=== PATIENT | male | born 1940 | race Caucasian/White ===

== ENCOUNTER 2017-04-29 16:50 | Outpatient (CLI) | payer MEDICARE | END 2017-04-29 16:51 | disposition EMS.NT | LOC: EMS 16:50 | PROVIDERS: ATTEND Surgery | DX: E16.2 Hypoglycemia, unspecified (principal) ==

== ENCOUNTER 2017-06-03 10:54 | Outpatient (CLI) | payer MEDICARE ==
--- NOTE | 2017-06-03 15:53 | XRAY Report ---
TWO VIEW RIGHT FEMUR: 06/03/2017 CLINICAL HISTORY: Pain. FINDINGS: Moderate degenerative changes are noted about the right hip. There is axial migration of t he femoral head relative to the acetabuli. Advanced subchondral sclerosis and osteophytic formation n oted. There are no changes to suggest avascular necrosis. The femoral shaft is otherwise unremarkable . Vascular calcifications are incidental. IMPRESSION: 1. DEGENERATIVE CHANGES ABOUT THE RIGHT HIP. 2. VASCULAR CALCIFICATIONS. JOB #: [id number] EXT JOB #:[id number]
== END 2017-06-03 10:55 | disposition home or self-care (01) ==
LOC: DI 10:54
PROVIDERS: ATTEND Internal Medicine
DX: M79.651 Pain in right thigh (principal); M16.11 Unilateral primary osteoarthritis, right hip

== ENCOUNTER 2017-06-18 07:48 | Outpatient (CLI) | payer MEDICARE ==
--- NOTE | 2017-06-18 10:56 | MRI Report ---
EXAM: RIGHT FEMUR/THIGH MRI WITHOUT CONTRAST EXAM DATE: 06/18/2017 09:05 a.m. CLINICAL HISTORY: Right thigh pain for 3 months. COMPARISON: X-ray 06/03/2017. TECHNIQUE: Multiplanar, multisequence T1-weighted and fluid-sensitive sequences of the femur/thigh wi thout contrast. Other: None. FINDINGS: Bones: There is severe osteoarthritis of the right hip visible on the prior x-ray. There is no marrow edema to suggest a fracture or destructive lesion. Joint Spaces: See above. Tendons: There is slightly increased T2 signal in the hamstrings tendon which is a common finding. It may indicate mild degenerative tearing. The remaining tendons appear unremarkable. Musculature: No edema or fatty atrophy. Other: The visualized sciatic and femoral nerves are unremarkable. The subcutaneous tissues are unrem arkable. IMPRESSION: 1. Severe right hip osteoarthritis visible on the recent x-ray. 2. No femoral lesion, or soft tissue injury to the right thigh. [facility] MUSCULOSKELETAL RADIOLOGY SECTION Referring Provider Line: [phone] SITE ID: [id number]
== END 2017-06-18 07:49 | disposition home or self-care (01) ==
LOC: DI 07:48
PROVIDERS: ATTEND Internal Medicine
DX: M79.651 Pain in right thigh (principal); M16.11 Unilateral primary osteoarthritis, right hip

== ENCOUNTER 2017-08-27 09:01 | Outpatient (CLI) | payer MEDICARE ==
[2017-08-27 09:23] LABS: BASOPHILS % (AUTO) 0.4 %; EOSINOPHILS # (AUTO) 0.2 10^3/uL (0.0-0.7); EOSINOPHILS % (AUTO) 1.6 %; HCT - HEMATOCRIT 39.2 % (42.0-52.0); LYMPHOCYTES # (AUTO) 1.6 10^3/uL (1.5-3.5); LYMPHOCYTES % (AUTO) 16.3 %; MEAN CORPUSCULAR HEMOGLOBIN 29.8 pg (27.0-31.0); MEAN CORPUSCULAR HGB CONC 33.1 g/dL (32.0-36.0); MEAN CORPUSCULAR VOLUME 89.9 fL (80.0-94.0); MEAN PLATELET VOLUME 8.6 fL (7.4-11.4); MONOCYTES # (AUTO) 0.6 10^3/uL (0.0-1.0); MONOCYTES % (AUTO) 6.1 %; NEUTROPHILS # (AUTO) 7.5 10^3/uL (1.5-6.6); NEUTROPHILS % (AUTO) 75.6 %; RED BLOOD COUNT 4.36 10^6/uL (4.70-6.10); RED CELL DISTRIBUTION WIDTH 13.7 % (12.0-15.0); UNCORRECTED WHITE BLOOD COUNT 9.9 x10^3/uL; WHITE BLOOD COUNT 9.9 x10^3/uL (4.8-10.8)
[2017-08-27 09:31] LABS: ALBUMIN/GLOBULIN RATIO 1.2 (1.0-2.2); BILIRUBIN,TOTAL 0.7 mg/dL (0.2-1.0); CALCIUM 10.9 mg/dL (8.5-10.3); CREATININE 1.7 mg/dL (0.6-1.2); POTASSIUM 4.4 mmol/L (3.5-5.0)
[2017-08-27 10:01] LABS: HEMOGLOBIN A1C 0.78 g/dL
== END 2017-08-27 09:02 | disposition home or self-care (01) ==
LOC: LAB 09:01
PROVIDERS: ATTEND Internal Medicine
DX: E11.9 Type 2 diabetes mellitus without complications (principal); I10 Essential (primary) hypertension
CPT/HCPCS: 36415; 80053; 82043; 83036; 85025

== ENCOUNTER 2017-11-02 08:27 | Outpatient (CLI) | payer MEDICARE ==
[2017-11-02 09:03] LABS: BASOPHILS # (AUTO) 0.1 10^3/uL (0.0-0.1); BASOPHILS % (AUTO) 0.8 %; EOSINOPHILS # (AUTO) 0.3 10^3/uL (0.0-0.7); EOSINOPHILS % (AUTO) 3.9 %; HGB - HEMOGLOBIN 12.2 g/dL (14.0-18.0); LYMPHOCYTES # (AUTO) 1.9 10^3/uL (1.5-3.5); LYMPHOCYTES % (AUTO) 21.9 %; MEAN CORPUSCULAR HEMOGLOBIN 29.9 pg (27.0-31.0); MEAN CORPUSCULAR HGB CONC 33.5 g/dL (32.0-36.0); MEAN CORPUSCULAR VOLUME 89.2 fL (80.0-94.0); MEAN PLATELET VOLUME 8.3 fL (7.4-11.4); MONOCYTES # (AUTO) 0.7 10^3/uL (0.0-1.0); MONOCYTES % (AUTO) 7.8 %; NEUTROPHILS # (AUTO) 5.8 10^3/uL (1.5-6.6); NEUTROPHILS % (AUTO) 65.6 %; PLT - PLATELET COUNT 207 10^3/uL (130-450); RED BLOOD COUNT 4.09 10^6/uL (4.70-6.10); RED CELL DISTRIBUTION WIDTH 14.2 % (12.0-15.0); WHITE BLOOD COUNT 8.9 x10^3/uL (4.8-10.8)
[2017-11-02 09:28] LABS: ALBUMIN 4.2 g/dL (3.2-5.5); ALBUMIN/GLOBULIN RATIO 1.2 (1.0-2.2); BILIRUBIN,TOTAL 0.6 mg/dL (0.2-1.0); CREATININE 1.9 mg/dL (0.6-1.2); TOTAL PROTEIN 7.6 g/dL (6.7-8.2)
== END 2017-11-02 08:28 | disposition home or self-care (01) ==
LOC: LAB 08:27
PROVIDERS: ATTEND Orthopaedic Surgery
DX: Z01.812 Encounter for preprocedural laboratory examination (principal); M16.11 Unilateral primary osteoarthritis, right hip
CPT/HCPCS: 36415; 80053; 85025; 86850; 86900; 86901

== ENCOUNTER 2017-11-03 09:06 | Inpatient (IN) | payer MEDICARE ==
[~2017-11-03 09:06] MED LIST: ACETAMINOPHEN 1,000 MG/100 ML 100 ML IV ONE; ceFAZolin 2 GM/50 ML 2 GM/50 ML BAG IV ONE
[2017-11-03] MEDS ORDERED: LACTATED RINGERS 1,000 ML IV ONE ×2 (09:50→11:40)
[2017-11-03] MEDS ORDERED: BUPIVACAINE 0.25%-EPI 1:200000 PF 10 ML VIAL SUBQ ONE (11:05)
[2017-11-03] MEDS ORDERED: ROPIVACAINE 0.2% PF 20 ML AMPULE SUBQ ONE (11:50)
[2017-11-03] MEDS ORDERED: MORPHINE PF 10 MG/10 ML AMP SUBQ ONE (11:50)
[2017-11-03] MEDS ORDERED: EPINEPHrine 1 MG/ML AMP IVP ONE (11:50)
[2017-11-03] MEDS ORDERED: KETOROLAC 30 MG/ML VIAL IVP ONE (11:50)
[2017-11-03] MEDS ORDERED: PROPOFOL 200 MG/20 ML VIAL IVP ONE (11:52)
[2017-11-03] MEDS ORDERED: TRANEXAMIC ACID 1,000 MG/10 ML VIAL IV ONE (11:52)
[2017-11-03] MEDS ORDERED: ePHEDrine 50 MG/ML VIAL IVP ONE (11:52)
[2017-11-03] MEDS ORDERED: MIDAZOLAM 2 MG/2 ML VIAL IVP ONE (11:52)
[2017-11-03] MEDS ORDERED: PHENYLEPHRINE 10 MG/ML VIAL IV ONE (11:52)
[2017-11-03] MEDS ORDERED: MORPHINE PF 5 MG/10 ML AMP EP ONE (11:52)
[2017-11-03] MEDS ORDERED: SENNA 8.6 MG TABLET PO PRN (12:40)
--- NOTE | 2017-11-03 12:40 | OPERATIVE REPORT ---
Operative Report - General Admit Date: 11/03/17 Procedure Date: 11/03/17 Planned Procedure: right total hip arthroplasty Pre-Op Diagnosis: djd right hip Procedure Performed: Right total Hip arthroplasty Post Op Diagnosis: same - Procedure Note Primary Surgeon: cheko Anesthesia Technique: Spinal IV Fluids (mL): 1,200 Estimated Blood Loss (mL): 300
[2017-11-03] MEDS ORDERED: BISACODYL 10 MG SUPP PR PRN (12:41)
[2017-11-03] MEDS ORDERED: ACETAMINOPHEN 1,000 MG/100 ML 100 ML IV PRN (12:41)
[2017-11-03] MEDS ORDERED: ACETAMINOPHEN 325 MG TABLET PO PRN (12:41)
[2017-11-03] MEDS ORDERED: SODIUM CHLORIDE FLUSH 0.9% 10 ML SYRINGE IVP PRN (12:41)
[2017-11-03] MEDS ORDERED: ONDANSETRON 4 MG/2 ML VIAL IVP PRN (12:41)
[2017-11-03] MEDS ORDERED: HYDROmorphone 1 MG/ML SYRINGE IVP PRN (12:41)
[2017-11-03] MEDS ORDERED: ONDANSETRON 4 MG/2 ML VIAL ONE (13:24)
--- NOTE | 2017-11-03 13:33 | XRAY Report ---
EXAM: RIGHT HIP AND PELVIS RADIOGRAPHY EXAM DATE: 11/03/2017 01:10 PM. HISTORY: Postoperative from right hip hemiarthroplasty COMPARISONS: 08/27/2017. TECHNIQUE: 1 view of the pelvis and 1 view of the hip. FINDINGS: Bones: New right hip arthroplasty prosthesis. Hardware appears intact. No fracture. Joints: Alignment appears satisfactory. Soft Tissues: There is postoperative soft tissue gas. Chronic spurring at the pubic symphysis appears unchanged. IMPRESSION: Satisfactory postoperative alignment. [facility] Referring Provider Line: [phone] SITE ID: [id number]
[2017-11-03] MEDS: PROCHLORPERAZINE 10 MG/2 ML VIAL IVP PRN ×2 (13:58→19:26)
[2017-11-03] MEDS: SODIUM CHLORIDE FLUSH 0.9% 10 ML SYRINGE IVP SCH ×2 (13:59→19:27)
[2017-11-03] MEDS: SODIUM CHLORIDE 0.45% 1,000 ML IV SCH (14:02)
[2017-11-03] MEDS ORDERED: POLYETHYLENE GLYCOL 3350 17 GM PACKET PO SCH ×2 (17:00→17:30)
[2017-11-03] MEDS ORDERED: DOCUSATE SODIUM 250 MG CAPSULE PO SCH ×3 (17:13→18:00)
--- NOTE | 2017-11-03 17:20 | OPERATIVE REPORT ---
DATE OF SERVICE: 11/03/2017 Physician: Macho Hull MD DATE OF SURGERY: 11/03/2017. PREOPERATIVE DIAGNOSIS: Right hip osteoarthritis. POSTOPERATIVE DIAGNOSIS: Right hip osteoarthritis. PROCEDURE PERFORMED: Right total hip replacement arthroplasty. OPERATING SURGEON: Macho Hull MD ANESTHESIA: Spinal. INDICATIONS FOR SURGERY: The patient is a 77-year-old male with progressive osteoarthritis of his right hip, who has failed nonoperative management, desires hip replacement. RECOMMENDATION: Total hip arthroplasty. FINDINGS AT SURGERY: The patient was found to have diminished range of motion of his hip with minimal shortening. Bone density appeared fair. Wear on the femoral head and acetabulum was actually [id number] in most quadrants of the head. DESCRIPTION OF OPERATIVE PROCEDURE: The patient was taken to the operating room, was given a spinal anesthetic after which a Palomo catheter was placed and the patient was placed supine. The patient's hips were sterilely prepped and draped in standard fashion. The patient was given preoperative IV antibiotics and tranexamic acid. Following this, the hip was prepped and draped in standard fashion and the planned incision site had been marked, was infiltrated with 0.25% Marcaine with epinephrine. Following this, an incision 8 cm in length was made from just lateral to the anterior superior iliac spine towards the femur, taken through skin and subcutaneous tissue, exposing the fascia overlying the tensor fascia muscle. This fascia was incised longitudinally, grasped on its more medial aspect with Allis clamps and the dissection made between that fascia and the underlying tensor muscle. This developed a medial interval for the anterior approach, dissecting down medial to the tensor muscle to the hip capsule, excising fatty tissues and ligating crossing vessels in the plane. Retractors were positioned to expose the femoral capsule, which was then excised anteriorly. This allowed intracapsular position of retractors, after which a ring osteotomy was made essentially removing a napkin ring of bone from the femoral neck and then allowing the corkscrew to remove the femoral head. Some releasing was yet done after this to expose better exposure of the acetabulum and the proximal femur. This required very sequential soft tissue releases around the trochanter and extending up around the acetabulum. Once retractors were positioned, the acetabulum was then reamed to accommodate a size 40 cup with accurate cup position guided by the alignment guides. A 40 cup was installed and was stable, and did not require screw fixation. This was a G7 cup. Following this, the exposure was again gained and the Vitamin E infused poly liner was inserted into the cup. The area was irrigated thoroughly. The proximal femur was exposed with releases and retraction. This brought the femur up into the field of view and allowed a slight correction of the femoral neck osteotomy with a saw followed by intramedullary opening with a rasp, followed by broaches and sequential broaching was taken up to accommodate a size 13 Taperloc stem and on this stem, trial reduction was performed with a 40 mm head and a standard neck length. This restored anatomic position and alignment and lengths of the limbs, and was completely stable through a range of motion. The trial components in the femur were removed. The area was irrigated thoroughly and the Taperloc size 13 stem with standard offset was inserted into the femur, followed by a 40 mm head with standard neck length metallic head and this was inserted into the cup and was stable again and restored limb lengths. The hip was flushed with both irrigation and then with irrigation containing Betadine, and followed by a third irrigation with plain saline. Following this, closure was undertaken closing the tensor fascia with interrupted 0 Vicryl, subcutaneous tissues with 2-0 Vicryl and skin with 3-0 Monocryl. Sterile dressings were applied. The patient was then transported off the OR table carefully onto a hospital bed and taken to recovery room in stable condition. ESTIMATED BLOOD LOSS FOR THE PROCEDURE: Less than 300 mL. COMPLICATIONS: None. COUNTS: Sponge and needle counts correct. TD: 11/03/2017 18:16
[2017-11-03] MEDS: ceFAZolin 2 GM/50 ML 2 GM/50 ML BAG IV SCH (18:26)
[2017-11-03] MEDS ORDERED: INSULIN 70/30 HUMAN 100 UNIT/1 ML 10 ML MDV SUBQ SCH (18:42)
[2017-11-03] MEDS: INSULIN 70/30 HUMAN 100 UNIT/1 ML 10 ML MDV SUBQ SCH (18:51)
[2017-11-03] MEDS: ATORVASTATIN 40 MG TABLET PO SCH (22:06)
[2017-11-03] MEDS: METOPROLOL TARTRATE 25 MG TABLET PO SCH (22:15)
[2017-11-04] MEDS: SODIUM CHLORIDE 0.45% 1,000 ML IV SCH (00:08)
[2017-11-04] MEDS: ceFAZolin 2 GM/50 ML 2 GM/50 ML BAG IV SCH (01:56)
[2017-11-04 05:09] LABS: CALCIUM 8.3 mg/dL (8.5-10.3); CREATININE 1.8 mg/dL (0.6-1.2)
[2017-11-04] MEDS: SODIUM CHLORIDE FLUSH 0.9% 10 ML SYRINGE IVP SCH ×3 (05:41→21:12)
[2017-11-04] MEDS: PANTOPRAZOLE 40 MG TABLET PO SCH (06:02)
[2017-11-04] MEDS: INSULIN 70/30 HUMAN 100 UNIT/1 ML 10 ML MDV SUBQ SCH ×2 (07:33→17:04)
[2017-11-04] MEDS: CHOLECALCIFEROL 1,000 UNIT TABLET PO SCH (08:18)
[2017-11-04] MEDS: METOPROLOL TARTRATE 25 MG TABLET PO SCH ×2 (08:18→21:07)
[2017-11-04] MEDS: LISINOPRIL 5 MG TABLET PO SCH (08:18)
[2017-11-04] MEDS: TAMSULOSIN 0.4 MG CAPSULE PO SCH (08:18)
[2017-11-04] MEDS: FINASTERIDE 5 MG TABLET PO SCH (08:18)
[2017-11-04] MEDS: oxyCOD/ACETAMIN 5 MG/325 MG TABLET PO PRN ×2 (08:18→16:07)
[2017-11-04] MEDS: hydroCHLOROthiazide 25 MG TABLET PO SCH (08:19)
[2017-11-04] MEDS ORDERED: POLYETHYLENE GLYCOL 3350 17 GM PACKET PO SCH (09:00)
[2017-11-04 09:02] LABS: HGB - HEMOGLOBIN 10.9 g/dL (14.0-18.0)
[2017-11-04] MEDS: ASPIRIN EC 325 MG TABLET PO SCH ×2 (09:16→21:07)
--- NOTE | 2017-11-04 09:58 | PROVIDER PROGRESS NOTE ---
Subjective - General Admit Date: 11/03/17 Procedure Date: 11/03/17 Post Op Days: 1 Procedure Performed: right total hip arthroplasty - Review of Systems Wound/Incisions: positive: Healing well Musculoskeletal: positive: Joint swelling Psychiatric: positive: No symptoms Objective - Patient Data Reviewed Vital Signs: Yes Vital Signs: Vital Signs x48h Temp Pulse Resp BP Pulse Ox 11/04/17 07:21 37.1 C 68 20 113/58 L 95 11/04/17 04:06 36.3 C L 81 16 116/69 96 Weight: Weight 11/02/17 11/03/17 11/04/17 23:59 23:59 23:59 Weight (kg) 110.3 kg Intake & Output: Intake and Output Totals x24h 11/02/17 11/03/17 11/04/17 23:59 23:59 23:59 Intake Total 400 2023.333 Output Total 925 500 Balance -525 1523.333 - Lab Results Lab Results: 11/04/17 04:45 Other Lab Results: Lab Results x24hrs 11/04/17 11/04/17 11/03/17 Range/Units 07:19 04:45 20:31 Sodium 133 L (135-145) mmol/L Potassium 5.2 H (3.5-5.0) mmol/L Chloride 101 (101-111) mmol/L Carbon Dioxide 21 (21-32) mmol/L Anion Gap 11.0 (6-13) BUN 55 H (6-20) mg/dL Creatinine 1.8 H (0.6-1.2) mg/dL Estimated GFR (MDRD) 37 L (>89) Glucose 255 H (70-100) mg/dL POC Whole Bld Glucose 204 H 240 H (70 - 100) mg/dL Calcium 8.3 L (8.5-10.3) mg/dL 11/03/17 11/03/17 11/03/17 Range/Units 16:19 13:16 09:43 Sodium (135-145) mmol/L Potassium (3.5-5.0) mmol/L Chloride (101-111) mmol/L Carbon Dioxide (21-32) mmol/L Anion Gap (6-13) BUN (6-20) mg/dL Creatinine (0.6-1.2) mg/dL Estimated GFR (MDRD) (>89) Glucose (70-100) mg/dL POC Whole Bld Glucose 187 H 152 H 164 H (70 - 100) mg/dL Calcium (8.5-10.3) mg/dL - Current Medications Current Medications: Current Medications Generic Name Dose Route Start Last Admin Trade Name Freq PRN Reason Stop Dose Admin Atorvastatin Calcium 40 mg 11/03/17 21:00 11/03/17 22:06 Lipitor PO 40 mg QPM BECCA Administration Cholecalciferol 2,000 unit 11/04/17 09:00 11/04/17 08:18 Vitamin D3 PO 2,000 unit DAILY BECCA Administration Finasteride 5 mg 11/04/17 09:00 11/04/17 08:18 Proscar PO 5 mg DAILY BECCA Administration Hydrochlorothiazide 25 mg 11/04/17 09:00 11/04/17 08:19 Hydrodiuril PO 25 mg DAILY BECCA Administration Insulin Human Isoph/Insulin Regular 42 unit 11/03/17 16:30 11/04/17 07:33 Novolin SUBQ 42 unit 0730,1630 BECCA Administration Lisinopril 2.5 mg 11/04/17 09:00 11/04/17 08:18 Zestril PO 2.5 mg DAILY BECCA Administration Metoprolol Tartrate 25 mg 11/03/17 21:00 11/04/17 08:18 Lopressor PO 25 mg BID BECCA Administration Ondansetron HCl 4 mg 11/03/17 12:41 11/03/17 15:04 Zofran Inj IVP 4 mg Q6HR PRN Administration Nausea / Vomiting Oxycodone/Acetaminophen 1 tab 11/03/17 12:41 11/04/17 08:18 Percocet 5 Mg/325 Mg PO 1 tab Q4HR PRN Administration PAIN Pantoprazole Sodium 40 mg 11/04/17 07:00 11/04/17 06:02 Protonix PO 40 mg QDAC BECCA Administration Polyethylene Glycol 17 gm 11/04/17 09:00 11/04/17 08:21 Miralax PO 11/04/17 10:00 17 gm ONCE BECCA Administration Prochlorperazine Edisylate 10 mg 11/03/17 12:41 11/03/17 19:26 Compazine Inj IVP 10 mg Q6HR PRN Administration Nausea / Vomiting Sodium Chloride 10 ml 11/03/17 14:00 11/04/17 05:41 Normal Saline Flush 0.9% IVP Not Given Q8HR BECCA Sodium Chloride 10 ml 11/03/17 12:41 11/03/17 19:27 Normal Saline Flush 0.9% IVP 10 ml PRN PRN Administration NEEDED PER PROVIDER ORDERS Tamsulosin HCl 0.4 mg 11/04/17 09:00 11/04/17 08:18 Flomax PO 0.4 mg DAILY BECCA Administration
[2017-11-04] MEDS: INSULIN ASPART 300 UNIT/3 ML PEN SUBQ SCH ×2 (12:13→16:57)
[2017-11-04] MEDS: ATORVASTATIN 40 MG TABLET PO SCH (21:07)
[2017-11-05] MEDS: INSULIN ASPART 300 UNIT/3 ML PEN SUBQ SCH ×2 (00:33→07:51)
[2017-11-05] MEDS: oxyCOD/ACETAMIN 5 MG/325 MG TABLET PO PRN ×2 (00:39→09:17)
[2017-11-05] MEDS: PANTOPRAZOLE 40 MG TABLET PO SCH (06:17)
[2017-11-05] MEDS: SODIUM CHLORIDE FLUSH 0.9% 10 ML SYRINGE IVP SCH (06:17)
[2017-11-05 07:24] VITALS: BP 118/52
--- NOTE | 2017-11-05 07:31 | PROVIDER PROGRESS NOTE ---
Subjective - General Admit Date: 11/03/17 Procedure Date: 11/03/17 Post Op Days: 2 Procedure Performed: right total hip arthroplasty - Review of Systems Wound/Incisions: positive: Healing well Musculoskeletal: positive: Joint swelling Psychiatric: positive: No symptoms Objective - Patient Data Reviewed Vital Signs: Yes Vital Signs: Vital Signs x48h Temp Pulse Resp BP BP Pulse Ox 11/05/17 07:21 36.6 C 79 20 118/52 L 96 11/05/17 06:58 36.8 C 80 18 112/66 96 11/05/17 01:53 37.1 C 74 18 98/43 L 94 Weight: Weight 11/03/17 11/04/17 11/05/17 23:59 23:59 23:59 Weight (kg) 110.3 kg Intake & Output: Intake and Output Totals x24h 11/03/17 11/04/17 11/05/17 23:59 23:59 23:59 Intake Total 400 3678.000 100 Output Total 925 500 Balance -525 3178.000 100 - Lab Results Lab Results: 11/04/17 08:55 11/04/17 04:45 Other Lab Results: Lab Results x24hrs 11/05/17 11/04/17 11/04/17 Range/Units 07:18 22:32 21:49 Hgb (14.0-18.0) g/dL Hct (42.0-52.0) % POC Whole Bld Glucose 89 134 H 73 (70 - 100) mg/dL 11/04/17 11/04/17 11/04/17 Range/Units 21:05 16:56 11:03 Hgb (14.0-18.0) g/dL Hct (42.0-52.0) % POC Whole Bld Glucose 59 L* 102 H 163 H (70 - 100) mg/dL 11/04/17 Range/Units 08:55 Hgb 10.9 L (14.0-18.0) g/dL Hct 35.0 L (42.0-52.0) % POC Whole Bld Glucose (70 - 100) mg/dL - Current Medications Current Medications: Current Medications Generic Name Dose Route Start Last Admin Trade Name Freq PRN Reason Stop Dose Admin Aspirin 325 mg 11/04/17 09:00 11/04/17 21:07 Ecotrin PO 325 mg BID BECCA Administration Atorvastatin Calcium 40 mg 11/03/17 21:00 11/04/17 21:07 Lipitor PO 40 mg QPM BECCA Administration Cholecalciferol 2,000 unit 11/04/17 09:00 11/04/17 08:18 Vitamin D3 PO 2,000 unit DAILY BECCA Administration Finasteride 5 mg 11/04/17 09:00 11/04/17 08:18 Proscar PO 5 mg DAILY BECCA Administration Hydrochlorothiazide 25 mg 11/04/17 09:00 11/04/17 08:19 Hydrodiuril PO 25 mg DAILY BECCA Administration Insulin Aspart 1 - 5 unit 11/04/17 12:00 11/05/17 00:33 Novolog SUBQ Not Given 0800,1200,1700,2100 [facility] Protocol Insulin Human Isoph/Insulin Regular 42 unit 11/03/17 16:30 11/04/17 17:04 Novolin SUBQ 42 unit 0730,1630 [facility] Administration Lisinopril 2.5 mg 11/04/17 09:00 11/04/17 08:18 Zestril PO 2.5 mg DAILY [facility] Administration Metoprolol Tartrate 25 mg 11/03/17 21:00 11/04/17 21:07 Lopressor PO 25 mg BID BECCA Administration Ondansetron HCl 4 mg 11/03/17 12:41 11/03/17 15:04 Zofran Inj IVP 4 mg Q6HR PRN Administration Nausea / Vomiting Oxycodone/Acetaminophen 1 tab 11/03/17 12:41 11/05/17 00:39 Percocet 5 Mg/325 Mg PO 1 tab Q4HR PRN Administration PAIN Pantoprazole Sodium 40 mg 11/04/17 07:00 11/05/17 06:17 Protonix PO 40 mg QDAC BECCA Administration Prochlorperazine Edisylate 10 mg 11/03/17 12:41 11/03/17 19:26 Compazine Inj IVP 10 mg Q6HR PRN Administration Nausea / Vomiting Sodium Chloride 10 ml 11/03/17 14:00 11/05/17 06:17 Normal Saline Flush 0.9% IVP 10 ml Q8HR BECCA Administration Sodium Chloride 10 ml 11/03/17 12:41 11/03/17 19:27 Normal Saline Flush 0.9% IVP 10 ml PRN PRN Administration NEEDED PER PROVIDER ORDERS Tamsulosin HCl 0.4 mg 11/04/17 09:00 11/04/17 08:18 Flomax PO 0.4 mg DAILY BECCA Administration - Physical Exam Wound/Incisions: positive: Healing well General Appearance: positive: No acute distress Extremities: positive: Joint swelling Neurologic/Psychiatric: positive: Motor nml, Sensation nml, Mood/affect nml Impression/Plan - Problem List Problem List: POD#2 Pt is doing very well and able to ambulate independently Has trended towards low blood sugar both pre and post surgery. this is to be addressed by patient with alteration in dosing. He is to be discharged and f/u in clinic next week dressing changed.
[2017-11-05] MEDS: CHOLECALCIFEROL 1,000 UNIT TABLET PO SCH (07:51)
[2017-11-05] MEDS: INSULIN 70/30 HUMAN 100 UNIT/1 ML 10 ML MDV SUBQ SCH (07:51)
[2017-11-05] MEDS: ASPIRIN EC 325 MG TABLET PO SCH (07:51)
[2017-11-05] MEDS: TAMSULOSIN 0.4 MG CAPSULE PO SCH (07:52)
[2017-11-05] MEDS: LISINOPRIL 5 MG TABLET PO SCH (07:53)
[2017-11-05] MEDS: hydroCHLOROthiazide 25 MG TABLET PO SCH (07:53)
[2017-11-05] MEDS: METOPROLOL TARTRATE 25 MG TABLET PO SCH (07:53)
[2017-11-05] MEDS: FINASTERIDE 5 MG TABLET PO SCH (07:53)
--- NOTE | 2017-11-05 09:20 | Discharge Plan ---
Discharge Plan Disposition: Home, Self Care Condition: Good Prescriptions: oxyCODONE/ACET 5/325 [Percocet 5 mg/325 mg] 1 tab PO Q4HR PRN #30 tablet PRN Reason: Pain Aspirin EC [Ecotrin] 325 mg PO BID #40 tablet Diet: Diabetic Activity Restrictions: Wt Bearing as Tolerated Shower Restrictions: Yes (keep wound dry) Driving Restrictions: Yes (no driving) Assistance Devices: Walker Weight Bearing: weight bear as tolerated with walker Instruction Topics: Acetaminophen Oxycodone tablets, Hip Replace Total Follow-Up Care: Outpatient Rehab - PT No Smoking: If you smoke, Please STOP! Call for help. Follow-up with: Jonnie Solis MD [Primary Care Provider] - Macho Hull MD [Provider Admit Priv/Credential] -
--- NOTE | 2017-11-17 15:53 | DISCHARGE SUMMARY ---
Physician: Macho Hull MD DATE OF ADMISSION: 11/03/2017 DATE OF DISCHARGE: 11/05/2017 OPERATIVE PROCEDURE: 11/03/2017, a right total hip replacement arthroplasty. REASON FOR ADMISSION: Patient is a 77-year-old male with end-stage hip arthritis who desires hip arthroplasty. The patient has failed nonoperative methods of care. The patient's history and physical exam are noted in the hospital record. HOSPITAL COURSE: The patient was admitted and on 11/03/2017 underwent surgical treatment. The patient tolerated this surgery well and in the postoperative period was returned back to the medical/surgical floor, receiving standard postoperative care for a total hip replacement. This included IV antibiotics, early DVT prophylaxis, and mobilization with therapy, as well as pain control. The patient did surprisingly well and on postop day 2 was anxious to be discharged home with home health therapy or outpatient therapy and followup visits in the clinic. The patient at that point had excellent healing of his incision, he was tolerating his medications well, and he was independent getting to the bathroom and mobilizing in the hospital room and in the hallway. MEDICATIONS AT DISCHARGE 1. Resumption of his usual medications. 2. Additional pain pills and aspirin as deep venous thrombosis prophylaxis. 3. The patient was also encouraged to use laxatives. Followup is to be in the Orthopedic Clinic in 1 week. TD: 11/17/2017 08:27 DIONI
== END 2017-11-05 10:04 | disposition home or self-care (01) | DRG 470 ==
LOC: MS2 09:06
PROVIDERS: ADMIT Orthopaedic Surgery; ATTEND Orthopaedic Surgery
PROC: 0SR902Z Replacement of Right Hip Joint with Metal on Polyethylene Synthetic Substitute, Open Approach (ICD-10-PCS; principal; 2017-11-03 09:45)
DX: M16.11 Unilateral primary osteoarthritis, right hip (principal); N13.8 Other obstructive and reflux uropathy; I10 Essential (primary) hypertension; G47.30 Sleep apnea, unspecified; E66.9 Obesity, unspecified; E11.42 Type 2 diabetes mellitus with diabetic polyneuropathy; E11.319 Type 2 diabetes mellitus with unspecified diabetic retinopathy without macular edema; E11.22 Type 2 diabetes mellitus with diabetic chronic kidney disease; N18.3 Chronic kidney disease, stage 3 (moderate); E87.5 Hyperkalemia; D63.1 Anemia in chronic kidney disease; E78.5 Hyperlipidemia, unspecified; I25.10 Atherosclerotic heart disease of native coronary artery without angina pectoris; N40.1 Benign prostatic hyperplasia with lower urinary tract symptoms; K21.9 Gastro-esophageal reflux disease without esophagitis; Z68.37 Body mass index [BMI] 37.0-37.9, adult; Z79.82 Long term (current) use of aspirin; Z79.4 Long term (current) use of insulin
CPT/HCPCS: 36415; 80048; 85014; 85018

== ENCOUNTER 2017-12-07 08:42 | Outpatient (CLI) | payer MEDICARE ==
[2017-12-07 09:28] LABS: CALCIUM 9.2 mg/dL (8.5-10.3); CREATININE 1.8 mg/dL (0.6-1.2)
[2017-12-07 09:40] LABS: HB2 TOTAL 11.9 g/dL; HEMOGLOBIN A1C 0.65 g/dL; HEMOGLOBIN A1C % 7.1 % (4.6-6.2)
== END 2017-12-07 08:43 | disposition home or self-care (01) ==
LOC: LAB 08:42
PROVIDERS: ATTEND Internal Medicine
DX: E11.40 Type 2 diabetes mellitus with diabetic neuropathy, unspecified (principal)
CPT/HCPCS: 36415; 80048; 83036

== ENCOUNTER 2017-12-16 12:14 | Outpatient (CLI) | payer MEDICARE ==
[2017-12-16 11:15] LABS: BASOPHILS # (AUTO) 0.1 10^3/uL (0.0-0.1); BASOPHILS % (AUTO) 0.7 %; EOSINOPHILS # (AUTO) 0.2 10^3/uL (0.0-0.7); EOSINOPHILS % (AUTO) 2.9 %; HGB - HEMOGLOBIN 10.5 g/dL (14.0-18.0); LYMPHOCYTES # (AUTO) 1.2 10^3/uL (1.5-3.5); LYMPHOCYTES % (AUTO) 14.2 %; MEAN CORPUSCULAR HEMOGLOBIN 28.6 pg (27.0-31.0); MEAN CORPUSCULAR HGB CONC 32.7 g/dL (32.0-36.0); MEAN CORPUSCULAR VOLUME 87.5 fL (80.0-94.0); MEAN PLATELET VOLUME 8.3 fL (7.4-11.4); MONOCYTES # (AUTO) 0.6 10^3/uL (0.0-1.0); MONOCYTES % (AUTO) 6.8 %; NEUTROPHILS # (AUTO) 6.4 10^3/uL (1.5-6.6); NEUTROPHILS % (AUTO) 75.4 %; PLT - PLATELET COUNT 224 10^3/uL (130-450); RED BLOOD COUNT 3.67 10^6/uL (4.70-6.10); RED CELL DISTRIBUTION WIDTH 14.3 % (12.0-15.0); WHITE BLOOD COUNT 8.5 x10^3/uL (4.8-10.8)
--- NOTE | 2017-12-16 12:49 | Ultrasound Report ---
RIGHT LEG VENOUS DUPLEX: 12/16/2017 CLINICAL INDICATION: Swelling. TECHNIQUE: Real-time sonographic vascular imaging was performed by the guide changer through the right leg utilizing both color flow and Doppler spectral analysis. Multiple farm loan representative static images were saved for review. FINDINGS: A right lower extremity venous sonogram is performed revealing the common femoral, superficial femoral, profunda femoris, and popliteal veins to be adequately visualized without intraluminal defects. There is normal venous compression, augmentation, phasicity, and spontaneity of venous flow. In the calf, the visualized more cephalad portions of posterior tibial and peroneal veins are grossly compressible, without filling defects. IMPRESSION: NO EVIDENCE OF DEEP VENOUS THROMBOSIS. TD: 12/16/2017 12:48
== END 2017-12-16 12:15 | disposition home or self-care (01) ==
LOC: DI 12:14
PROVIDERS: ATTEND Orthopaedic Surgery
DX: R22.41 Localized swelling, mass and lump, right lower limb (principal)
CPT/HCPCS: 36415; 85025; 85651; 86140

== ENCOUNTER 2018-03-08 09:04 | Outpatient (CLI) | payer MEDICARE ==
--- NOTE | 2018-03-08 15:02 | Ultrasound Report ---
AORTA SCREENIN03/08/2018 CLINICAL INDICATION: Screening. TECHNIQUE: Real-time sonographic imaging was performed by the steam pipe fitter through the aorta. Multiple community engagement representative static images were saved for review. FINDINGS: The abdominal aorta is normal in caliber throughout, measuring 2.8 cm proximally, 2.2 cm in the mid portion, and 2.2 cm distally. The iliacs are normal in caliber. No free fluid is present. IMPRESSION: NO EVIDENCE OF AN ABDOMINAL AORTIC ANEURYSM. TD: 03/08/2018 10:42 [facility]
== END 2018-03-08 09:05 | disposition home or self-care (01) ==
LOC: DI 09:04
PROVIDERS: ATTEND Internal Medicine
DX: Z13.6 Encounter for screening for cardiovascular disorders (principal)
CPT/HCPCS: 76706

== ENCOUNTER 2018-03-09 11:33 | Outpatient (CLI) | payer MEDICARE ==
[2018-03-09 12:03] LABS: BASOPHILS # (AUTO) 0.1 10^3/uL (0.0-0.1); BASOPHILS % (AUTO) 0.7 %; EOSINOPHILS # (AUTO) 0.3 10^3/uL (0.0-0.7); EOSINOPHILS % (AUTO) 3.4 %; HGB - HEMOGLOBIN 10.9 g/dL (14.0-18.0); LYMPHOCYTES # (AUTO) 1.3 10^3/uL (1.5-3.5); LYMPHOCYTES % (AUTO) 17.4 %; MEAN CORPUSCULAR HEMOGLOBIN 27.1 pg (27.0-31.0); MEAN CORPUSCULAR HGB CONC 31.9 g/dL (32.0-36.0); MEAN CORPUSCULAR VOLUME 85.2 fL (80.0-94.0); MEAN PLATELET VOLUME 8.5 fL (7.4-11.4); MONOCYTES # (AUTO) 0.6 10^3/uL (0.0-1.0); MONOCYTES % (AUTO) 7.7 %; NEUTROPHILS # (AUTO) 5.5 10^3/uL (1.5-6.6); NEUTROPHILS % (AUTO) 70.8 %; PLT - PLATELET COUNT 193 10^3/uL (130-450); RED BLOOD COUNT 4.01 10^6/uL (4.70-6.10); RED CELL DISTRIBUTION WIDTH 15.9 % (12.0-15.0); WHITE BLOOD COUNT 7.7 x10^3/uL (4.8-10.8)
[2018-03-09 13:11] LABS: CALCIUM 8.7 mg/dL (8.5-10.3); CREATININE 2.3 mg/dL (0.6-1.2)
== END 2018-03-09 11:34 | disposition home or self-care (01) ==
LOC: LAB 11:33
PROVIDERS: ATTEND Orthopaedic Surgery
DX: Z01.812 Encounter for preprocedural laboratory examination (principal); E11.621 Type 2 diabetes mellitus with foot ulcer
CPT/HCPCS: 36415; 80048; 85025

== ENCOUNTER 2018-03-11 07:44 | Day surgery (SDC) | payer MEDICARE | END 2018-03-11 07:45 | disposition home or self-care (01) | LOC: SDS 07:44 | PROVIDERS: ATTEND Orthopaedic Surgery | DX: Z53.9 Procedure and treatment not carried out, unspecified reason (principal) ==

== ENCOUNTER 2018-03-11 07:49 | Outpatient (CLI) | payer MEDICARE ==
[2018-03-11 08:16] LABS: CALCIUM 8.9 mg/dL (8.5-10.3); CREATININE 2.2 mg/dL (0.6-1.2)
== END 2018-03-11 07:50 | disposition home or self-care (01) ==
LOC: LAB 07:49
PROVIDERS: ATTEND Nurse Anesthetist, Certified Registered
DX: Z01.812 Encounter for preprocedural laboratory examination (principal); E11.621 Type 2 diabetes mellitus with foot ulcer
CPT/HCPCS: 36415; 80048

== ENCOUNTER 2018-03-25 06:11 | Day surgery (SDC) | payer MEDICARE ==
[2018-03-25] MEDS ORDERED: ceFAZolin 2 GM/50 ML 2 GM/50 ML BAG IV ONE (06:49)
[2018-03-25 06:59] LABS: CALCIUM 8.7 mg/dL (8.5-10.3); CREATININE 1.5 mg/dL (0.6-1.2)
[2018-03-25] MEDS ORDERED: LACTATED RINGERS 1,000 ML IV ONE ×2 (07:09→08:57)
[2018-03-25] MEDS ORDERED: LIDOCAINE-MPF 1% 30 ML VIAL ONE (07:23)
[2018-03-25] MEDS ORDERED: BUPIVACAINE 0.5% PF 30 ML VIAL ONE (07:24)
[2018-03-25] MEDS ORDERED: LIDOCAINE-MPF 2% 5 ML VIAL IM ONE (08:00)
[2018-03-25] MEDS ORDERED: PROPOFOL 200 MG/20 ML VIAL IVP ONE (08:00)
[2018-03-25] MEDS ORDERED: fentaNYL 100 MCG/2 ML VIAL IVP ONE (08:00)
[2018-03-25] MEDS ORDERED: MIDAZOLAM 2 MG/2 ML VIAL IVP ONE (08:00)
[2018-03-25 09:00] VITALS: BP 152/87
--- NOTE | 2018-03-25 17:22 | OPERATIVE REPORT ---
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 PROCEDURE PERFORMED: Right third toe partial amputation at the PIP joint level. OPERATING SURGEON: Macho Hull MD ANESTHESIA: Local MAC, provider Larry Mcmanus. INDICATIONS FOR SURGERY: Pedro is a 77-year-old diabetic male who has had spontaneous breakdown of the distal aspect of his right third toe. This has caused a black eschar to form on the tip of his toe and caused him pain and tenderness. The patient desires that this be appropriately treated and is given consent to distal toe amputation. FINDINGS AT SURGERY: The patient was found to have a necrotic distal pulp of the third toe with the tip of the distal phalanx exposed at the end of the toe. The patient has mild venous stasis dermatitis and discoloration due to venous insufficiency. He does not necessarily have cellulitis. DESCRIPTION OF OPERATIVE PROCEDURE: The patient was taken to the operating room. He was given a MAC anesthetic, after which his toe was carefully blocked after prep and drape. The block of his toe was 6 mL of a combination of 1% lidocaine and 0.25% Marcaine plain. This block was accomplished, after which an Esmarch was used as a tourniquet up to the ankle level and fish mouth incisions were made at the level just distal to the PIP joint to affect an amputation through that joint level. These incisions were taken directly down to bone and through flexor tendons on the volar side and extensors on the dorsal side. The joint level was confirmed and the toe was amputated by direct incision through the capsule and joint. This left exposed condyles of the proximal phalanx and these were rongeured back to a smooth rounded tip with no prominences and with no pressure on skin closure. Flexor and extensor tendons were debrided back as were the digital nerves. Tourniquet was let loose and there was no significant bleeding. Closure was with interrupted 4-0 nylon in the skin, yielding a closure without tension. Sterile dressings were applied and the patient was taken to the recovery room in stable condition. ESTIMATED BLOOD LOSS: Minimal. COMPLICATIONS: None. COUNTS: Sponge and needle counts were correct. TD: 03/25/2018 12:46
== END 2018-03-25 06:12 | disposition home or self-care (01) ==
LOC: SDS 06:11
PROVIDERS: ATTEND Orthopaedic Surgery
PROC: 0Y6T0Z3 Detachment at Right 3rd Toe, Low, Open Approach (ICD-10-PCS; principal; 2018-03-25 07:30)
DX: E11.621 Type 2 diabetes mellitus with foot ulcer (principal); E11.69 Type 2 diabetes mellitus with other specified complication; M86.8X7 Other osteomyelitis, ankle and foot; N28.9 Disorder of kidney and ureter, unspecified; I25.10 Atherosclerotic heart disease of native coronary artery without angina pectoris; I10 Essential (primary) hypertension; K21.9 Gastro-esophageal reflux disease without esophagitis; Z96.641 Presence of right artificial hip joint; E78.5 Hyperlipidemia, unspecified; G47.30 Sleep apnea, unspecified; Z87.891 Personal history of nicotine dependence; E11.40 Type 2 diabetes mellitus with diabetic neuropathy, unspecified; Z79.4 Long term (current) use of insulin
CPT/HCPCS: 28825; 36415; 80048; J0690; J7120; 88305; 88311

== ENCOUNTER 2018-05-04 09:00 | Outpatient (CLI) | payer MEDICARE | END 2018-05-04 09:01 | disposition home or self-care (01) | LOC: LAB.R 09:00 | PROVIDERS: ATTEND Podiatrist | DX: L03.031 Cellulitis of right toe (principal) | CPT/HCPCS: 87070; 87077; 87181; 87205 ==

== ENCOUNTER 2018-05-14 08:03 | Outpatient (CLI) | payer MEDICARE ==
--- NOTE | 2018-05-14 08:52 | XRAY Report ---
Procedure Date: 05/14/2018 Accession Number: [id number] / [id number] Procedure: XR - Foot 3 View RT CPT Code: FULL RESULT: EXAM: Foot 3 View RT DATE: 05/14/2018 8:05 AM CLINICAL HISTORY: GANGRENE R FOOT COMPARISON: None. TECHNIQUE: 3 views. FINDINGS: Calcific soft tissue densities about the medial aspect of the shaft of the third proximal phalanx may represent vascular calcification versus periosteal reaction of this partially amputated ray. Osteomyelitis is not excluded, correlate to physical examination for open wound of the third ray. An osseous erosion is identified in the distal phalanx of the second ray, correlate to physical examination. The medial aspect of the distal head of the first metatarsal also contains a sharply demarcated osseous erosion adnexa soft tissue swelling, correlate to soft tissue this area. There is no fracture or dislocation. No soft tissue gas or radiopaque foreign bodies identified. Extensive vascular calcifications are noted. IMPRESSION: Questionable osseous changes near the first metatarsophalangeal joint, distal tip of the second toe and partially amputated third toe. These 3 areas should be correlated to the physical examination for soft tissue wounds. If present, osteomyelitis is suspected. [facility]
== END 2018-05-14 08:04 | disposition home or self-care (01) ==
LOC: DI 08:03
PROVIDERS: ATTEND Internal Medicine
DX: I96 Gangrene, not elsewhere classified (principal)

== ENCOUNTER 2018-05-19 19:34 | Outpatient (CLI) | payer MEDICARE ==
--- NOTE | 2018-05-20 09:38 | Ultrasound Report ---
Procedure Date: 05/19/2018 Accession Number: [id number] / [id number] Procedure: US - Ankle Brachial Index CPT Code: FULL RESULT: EXAM: ANKLE-BRACHIAL INDEX EXAM DATE: 05/19/2018 08:07 PM. CLINICAL HISTORY: Gangrene right foot. COMPARISON: None. TECHNIQUE: Standard ankle-brachial index performed. FINDINGS: Right and left brachial pressures are 156 and 140 mmHg respectively. Right and left ankle pressures are 166 and 135 mmHg respectively. Right and left ankle-brachial index is 1.06 and 0.86 respectively. IMPRESSION: 1. Right ankle-brachial index is 1.06. 2. Left ankle-brachial index is 0.86. [facility]
--- NOTE | 2018-05-20 14:32 | Ultrasound Report ---
Procedure Date: 05/19/2018 Accession Number: [id number] / [id number] Procedure: US - Duplex Lwr Ext Arterial Bilat CPT Code: FULL RESULT: EXAM: Bilateral Lower Extremity Arterial Doppler Ultrasound EXAM DATE: 05/19/2018 08:23 PM. CLINICAL HISTORY: Gangrene right foot. COMPARISON: None. TECHNIQUE: Real-time sonographic vascular imaging was performed by the supervisor costuming, utilizing color-flow, Doppler flow, and spectral analysis. Multiple client representative static images were saved for review. FINDINGS: Atheromatous calcified and noncalcified plaques are present throughout the arteries of both lower extremities extending from the common femoral artery to the ankle. Monophasic or triphasic waveforms are noted in the right common femoral, superficial femoral, profunda femoral, popliteal and anterior tibial arteries. However, monophasic waveforms are noted in the right posterior tibial, peroneal and dorsalis pedis arteries. No focal area of elevated velocity or spectral broadening is noted in the right leg. No hemodynamically significant focal stenosis is noted in the arteries of the right lower extremity. Biphasic waveforms are seen in the left common femoral and profunda femoral arteries. The remaining vessels including the superficial femoral, popliteal, anterior tibial, posterior tibial, peroneal and dorsalis pedis arteries do show monophasic waveforms. No focal area of elevated velocities or stenosis or aneurysm is noted in the arteries of the left leg. Right Lower Extremity: INTERNET NETWORK SPECIALIST: PSV 162 cm/sec. Triphasic waveform. PSFA: PSV 107 cm/sec. Triphasic waveform. MSFA: PSV 139.4 cm/sec. Biphasic waveform. DSFA: PSV 121 cm/sec. Biphasic waveform. PFA: PSV 71.6 cm/sec. Biphasic waveform. POP: PSV 106 cm/sec. Biphasic waveform. WHITNEY: PSV 89 cm/sec. Biphasic waveform. APPLIANCE FIXER: PSV 91.3 cm/sec. Monophasic waveform. CHRISTOPHE: PSV 59 cm/sec. Monophasic waveform. DPA: PSV 36.6 cm/sec. Monophasic waveform. Left Lower Extremity: INTERNET NETWORK SPECIALIST: PSV 158 cm/sec. Biphasic waveform. PSFA: PSV 66.7 cm/sec. Monophasic waveform. MSFA: PSV 74 cm/sec. Monophasic waveform. DSFA: PSV 110 cm/sec. Monophasic waveform. PFA: PSV 72.6 cm/sec. Biphasic waveform. POP: PSV 123 cm/sec. Monophasic waveform. WHITNEY: PSV 98 cm/sec. Monophasic waveform. APPLIANCE FIXER: PSV 14 cm/sec. Monophasic waveform. CHRISTOPHE: PSV 80 cm/sec. Monophasic waveform. DPA: PSV 21.8 cm/sec. Monophasic waveform. IMPRESSION: 1. Diffuse atheromatous calcified and noncalcified plaques in both lower extremity arterial systems. 2. No hemodynamically significant stenosis as evidenced by elevated velocities or color barker scale imaging abnormality. 3. Diffusely abnormal left leg waveforms beginning at the left common femoral artery and extending to the left ankle. Occult lesion at the distal left common femoral artery not excluded. Findings could be confirmed with CT angiogram with runoff as necessary. 4. Diffusely abnormal monophasic waveforms in the right posterior tibial, peroneal and dorsalis pedis arteries. Triphasic or biphasic waveforms are seen between the common femoral artery and popliteal artery. No focal hemodynamically significant stenosis is noted in the right leg arterial system. Again, CT angiogram with runoff would confirm the presence or absence of an occult lesion. RADIA
== END 2018-05-19 19:35 | disposition home or self-care (01) ==
LOC: DI 19:34
PROVIDERS: ATTEND Internal Medicine
DX: I70.263 Atherosclerosis of native arteries of extremities with gangrene, bilateral legs (principal)
CPT/HCPCS: 93922; 93925

== ENCOUNTER 2018-06-01 08:09 | Outpatient (CLI) | payer MEDICARE ==
[2018-06-01 08:29] LABS: BASOPHILS # (AUTO) 0.1 10^3/uL (0.0-0.1); BASOPHILS % (AUTO) 0.6 %; EOSINOPHILS # (AUTO) 0.2 10^3/uL (0.0-0.7); EOSINOPHILS % (AUTO) 3.1 %; HGB - HEMOGLOBIN 12.3 g/dL (14.0-18.0); LYMPHOCYTES # (AUTO) 1.1 10^3/uL (1.5-3.5); LYMPHOCYTES % (AUTO) 13.9 %; MEAN CORPUSCULAR HEMOGLOBIN 28.6 pg (27.0-31.0); MEAN CORPUSCULAR HGB CONC 32.7 g/dL (32.0-36.0); MEAN CORPUSCULAR VOLUME 87.4 fL (80.0-94.0); MEAN PLATELET VOLUME 8.3 fL (7.4-11.4); MONOCYTES # (AUTO) 0.6 10^3/uL (0.0-1.0); MONOCYTES % (AUTO) 7.2 %; NEUTROPHILS # (AUTO) 5.9 10^3/uL (1.5-6.6); NEUTROPHILS % (AUTO) 75.2 %; PLT - PLATELET COUNT 185 10^3/uL (130-450); RED BLOOD COUNT 4.31 10^6/uL (4.70-6.10); RED CELL DISTRIBUTION WIDTH 15.8 % (12.0-15.0); WHITE BLOOD COUNT 7.8 x10^3/uL (4.8-10.8)
[2018-06-01 08:38] LABS: CALCIUM 9.2 mg/dL (8.5-10.3); CREATININE 1.8 mg/dL (0.6-1.2)
== END 2018-06-01 08:10 | disposition home or self-care (01) ==
LOC: LAB 08:09
PROVIDERS: ATTEND Orthopaedic Surgery
DX: E11.621 Type 2 diabetes mellitus with foot ulcer (principal); I73.9 Peripheral vascular disease, unspecified; N18.3 Chronic kidney disease, stage 3 (moderate)
CPT/HCPCS: 36415; 80048; 85025

== ENCOUNTER 2018-06-08 07:09 | Day surgery (SDC) | payer MEDICARE ==
[2018-06-08] MEDS ORDERED: LIDOCAINE-MPF 2% 5 ML VIAL IM ONE (07:10)
[2018-06-08] MEDS ORDERED: BUPIVACAINE 0.5% PF 30 ML VIAL ONE (07:19)
[2018-06-08] MEDS ORDERED: LIDOCAINE-MPF 1% 30 ML VIAL ONE (07:19)
--- NOTE | 2018-06-08 07:22 | ANESTHESIA ---
Pre-Anesthesia VS, & Labs - Diagnosis Gangrene 2nd, 3rd, 4th toes of right foot - Procedure Amputation of right 2nd, 3rd, 4th toes of right foot Vital Signs: 135/70 57 20 98% , am blood sugar 83 Height 5 ft 9 in Body Mass Index 35.9 - NPO >8 hours - Lab Results Lab results reviewed: Yes Fish Bones: 06/08/18 07:40 Home Medications and Allergies Home Medications: Ambulatory Orders Medication Instructions Recorded Confirmed Atorvastatin Calcium 40 mg PO DAILY 10/14/17 06/08/18 Cholecalciferol (Vitamin D3) 2,000 unit PO DAILY 10/14/17 06/08/18 [Vitamin D3] Finasteride 5 mg PO DAILY 10/14/17 06/08/18 Insulin 70/30 Human [NovoLIN] 44 unit SUBQ 0730,1630 10/14/17 06/08/18 Metoprolol Tartrate 25 mg PO BID 10/14/17 06/08/18 Omeprazole 20 mg PO DAILY 10/14/17 06/08/18 Tamsulosin HCl [Flomax] 0.4 mg PO DAILY 10/14/17 06/08/18 Senna [Senokot] 8.6 mg PO BID PRN 11/03/17 06/08/18 Gabapentin 300 mg PO DAILY 03/09/18 06/08/18 Aspirin 81 mg PO DAILY 05/31/18 06/08/18 Furosemide [Lasix] 20 mg PO DAILY 05/31/18 06/08/18 Allergies/Adverse Reactions: Allergies Allergy/AdvReac Type Severity Reaction Status Date / Time No Known Drug Allergies Allergy Verified 06/08/18 07:52 Anes History & Medical History - Anesthetic History Anesthesia Complications: reports: No previous complications Family history of Anesthesia Complications: Denies Family history of Malignant Hyperthermia: Denies - Medical History Cardiovascular: reports: Hypertension, High cholesterol, Coronary artery disease Pulmonary: reports: Sleep apnea (no CPAP use, sleeps sitting up) Gastrointestinal: reports: GERD, Ulcers, Colon polyps Urinary: reports: Benign prostate hypertrophy, Retention, Renal insuffiency Neuro: reports: None Musculoskeletal: reports: Osteoarthritis Endocrine/Autoimmune: reports: Type 2 diabetes Blood Disorders: reports: None Skin: reports: Other Smoking Status: Former smoker - Surgical History General: Appendectomy, Colonoscopy Cardiothoracic: Cardiac catheterization Orthopedic: Hip replacement, Amputation Results - EKG Results EKG Comparison: Reviewed EKG (01/20/14 EKG showed right BBB and old inferior WI) Exam General: Alert Dental: Partials Upper, Partials Lower Mouth Opening: Greater than 4 Fingerbreadths Mallampati classification: III Respiratory: Lungs clear Cardiovascular: Regular rate, Normal S1, Normal S2 Extremities: Other (open ulcers to 2nd, 3rd and 4th toes) Mental/Cognitive Status: Alert/Oriented X3 Plan Anesthesia Type: Other Block (ankle block) Consent for Procedure(s) Verified and Reviewed: Yes Code Status: Attempt Resuscitation ASA classification: 3-Severe systemic disease Is this case an emergency?: No
[2018-06-08 07:55] LABS: CALCIUM 9.1 mg/dL (8.5-10.3); CREATININE 1.8 mg/dL (0.6-1.2)
[2018-06-08] MEDS ORDERED: LACTATED RINGERS 1,000 ML IV ONE (08:08)
[2018-06-08] MEDS ORDERED: fentaNYL 100 MCG/2 ML VIAL IVP ONE (08:40)
[2018-06-08] MEDS ORDERED: BUPIVACAINE 0.5% PF 30 ML VIAL SUBQ ONE (08:40)
[2018-06-08] MEDS ORDERED: MIDAZOLAM 2 MG/2 ML VIAL IVP ONE (08:40)
[2018-06-08 10:03] VITALS: BP 142/58
--- NOTE | 2018-06-08 21:16 | OPERATIVE REPORT ---
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 POSTOPERATIVE DIAGNOSIS: Ischemic necrosis and diabetic ulceration of right second, third, and fourt h toes. PROCEDURE PERFORMED: Amputation of the patient's right second, third, and fourth toes. OPERATING SURGEON: Macho Hull MD ANESTHESIA: MAC and ankle block anesthetic by Elaina Mann. INDICATIONS FOR SURGERY: Patient is a 78-year-old male who is suffering from both diabetes and ische elena of his lower extremities, more on the right than the left, and has developed intermittent ulcerat ion of the toes of his foot now leading to osteomyelitis and breakdown of tissues with prior history of third partial toe amputation. Because of this situation, the patient has had vascular consultatio n. At this point in time, bypass is not recommended and the amputation is the procedure of choice wi th the patient understanding that this may not be a definitive end-stage amputation. He may end up r equiring a below-knee amputation. FINDINGS AT SURGERY: The patient had necrosis of the tips of second and fourth toes with a black esc shannan and on the third toe that it had a partial amputation, there was breakdown of the wound and mild drainage. There was minimal cellulitis in the tissues and it did not extend proximal to the metatars ophalangeal joint level. DESCRIPTION OF OPERATIVE PROCEDURE: The patient was taken to the operating room. He had been given an ankle block anesthetic. He was given sedation in the operating room. A surgical timeout was held , after which a well-padded tourniquet was placed on the patient's thigh and his leg was sterilely pr epped and draped in standard fashion. The digital amputation was marked out for an en bloc resection of second, third, and fourth toes with an elliptical incision around the base with a planned amputat ion level at the metatarsophalangeal joints. These toes were taken off together dividing straight to the joint level and dividing tendons and neurovascular bundles and removing the specimen. After thi s, the wound was flushed and then some rongeur shortening was performed on each of the exposed metata rsal heads to not only shorten them but round them and smooth them, and remove their plantar prominen ce. Once this was accomplished, the wound fell together without tension and was flushed and irrigate d again and closed with interrupted 2-0 and 3-0 nylon sutures. During the surgery, there had been so me light bleeding from all surfaces, but atypical for the lack of more profound bleeding. The tourni quet was never used. Once the wounds were closed, sterile dressings were applied and the patient was taken to the recovery room. ESTIMATED BLOOD LOSS: Less than 15 mL. COMPLICATIONS: None. SPONGE AND NEEDLE COUNTS: Correct. TD: 06/08/2018 14:00
== END 2018-06-08 07:10 | disposition home or self-care (01) ==
LOC: SDS 07:09
PROVIDERS: ATTEND Orthopaedic Surgery
PROC: 0Y6M0Z7 Detachment at Right Foot, Complete 4th Ray, Open Approach (ICD-10-PCS; 2018-06-08)
PROC: 0Y6M0Z6 Detachment at Right Foot, Complete 3rd Ray, Open Approach (ICD-10-PCS; 2018-06-08)
PROC: 0Y6M0Z5 Detachment at Right Foot, Complete 2nd Ray, Open Approach (ICD-10-PCS; principal; 2018-06-08 08:30)
DX: E11.621 Type 2 diabetes mellitus with foot ulcer (principal); L97.514 Non-pressure chronic ulcer of other part of right foot with necrosis of bone; L97.516 Non-pressure chronic ulcer of other part of right foot with bone involvement without evidence of necrosis; E11.69 Type 2 diabetes mellitus with other specified complication; M86.9 Osteomyelitis, unspecified; E11.52 Type 2 diabetes mellitus with diabetic peripheral angiopathy with gangrene; I96 Gangrene, not elsewhere classified; I12.9 Hypertensive chronic kidney disease with stage 1 through stage 4 chronic kidney disease, or unspecified chronic kidney disease; E11.22 Type 2 diabetes mellitus with diabetic chronic kidney disease; N18.3 Chronic kidney disease, stage 3 (moderate); D63.1 Anemia in chronic kidney disease; I25.10 Atherosclerotic heart disease of native coronary artery without angina pectoris; E78.5 Hyperlipidemia, unspecified; G47.30 Sleep apnea, unspecified; E66.01 Morbid (severe) obesity due to excess calories; Z68.37 Body mass index [BMI] 37.0-37.9, adult; E11.319 Type 2 diabetes mellitus with unspecified diabetic retinopathy without macular edema; K21.9 Gastro-esophageal reflux disease without esophagitis; N40.1 Benign prostatic hyperplasia with lower urinary tract symptoms; R33.8 Other retention of urine; M19.90 Unspecified osteoarthritis, unspecified site; Z96.641 Presence of right artificial hip joint; Z79.4 Long term (current) use of insulin; Z79.82 Long term (current) use of aspirin; Z87.891 Personal history of nicotine dependence
CPT/HCPCS: 28810; 36415; 80048; J7120

== ENCOUNTER 2018-07-01 09:33 | Outpatient (CLI) | payer MEDICARE ==
--- NOTE | 2018-07-01 10:38 | XRAY Report ---
Reason: PROGRESSIVE PAIN AND EDEMA RIGHT ANKLE Procedure Date: 07/01/2018 Accession Number: [id number] / [id number] Procedure: XR - Ankle 3 View LT CPT Code: FULL RESULT: EXAM: LEFT ANKLE RADIOGRAPHY EXAM DATE: 07/01/2018 09:46 AM. CLINICAL HISTORY: PROGRESSIVE PAIN AND EDEMA RIGHT ANKLE. COMPARISON: None. TECHNIQUE: 3 views. FINDINGS: Bones: No fractures or bone lesions. There is a moderate calcaneal spur at the insertion of the plantar fascia. There is pes planus. There is degeneration of the talocalcaneal articulations. Joints: No effusion. No subluxations. The ankle mortise is normally aligned. Soft Tissues: There is diffuse soft tissue swelling. Vascular calcifications are noted. IMPRESSION: Charcot joint. Moderate calcaneal spur. RADIA
== END 2018-07-01 09:34 | disposition home or self-care (01) ==
LOC: DI 09:33
PROVIDERS: ATTEND Podiatrist
DX: A52.16 Charcot's arthropathy (tabetic) (principal); M77.31 Calcaneal spur, right foot

== ENCOUNTER 2018-08-17 10:47 | Day surgery (SDC) | payer MEDICARE ==
[~2018-08-17 10:47] MED LIST changes: -ACETAMINOPHEN 1,000 MG/100 ML 100 ML IV ONE
[2018-08-17] MEDS ORDERED: BUPIVACAINE 0.5% PF 30 ML VIAL ONE (11:08)
[2018-08-17] MEDS ORDERED: LACTATED RINGERS 1,000 ML IV ONE (11:29)
--- NOTE | 2018-08-17 11:31 | ANESTHESIA ---
Pre-Anesthesia VS, & Labs - Diagnosis Right 5th Toe infection - Procedure Right 5th toe amputation Vital Signs: Temp Pulse Resp BP Pulse Ox 36.3 C L 64 16 133/109 H 98 08/17/18 11:03 08/17/18 11:03 08/17/18 11:03 08/17/18 11:03 08/17/18 11:03 Height 5 ft 9 in Weight (kg) 108.2 kg Body Mass Index 35.9 - NPO >8 hours Last Fluid Intake: 0930 H2O and black coffee - Lab Results Current Lab Results: Laboratory Tests 08/17/18 11:15: POC Whole Bld Glucose 146 H Home Medications and Allergies Atorvastatin Calcium 40 mg PO DAILY 10/14/17 Cholecalciferol (Vitamin D3) [Vitamin D3] 2,000 unit PO DAILY 10/14/17 Finasteride 5 mg PO DAILY 10/14/17 Insulin 70/30 Human [NovoLIN] 44 unit SUBQ 0730,1630 10/14/17 Metoprolol Tartrate 25 mg PO BID 10/14/17 Omeprazole 20 mg PO DAILY 10/14/17 Tamsulosin HCl [Flomax] 0.4 mg PO DAILY 10/14/17 Senna [Senokot] 8.6 mg PO BID PRN 11/03/17 Gabapentin 300 mg PO DAILY 03/09/18 Aspirin 81 mg PO DAILY 05/31/18 Furosemide [Lasix] 20 mg PO DAILY 05/31/18 Allergies/Adverse Reactions: Allergies Allergy/AdvReac Type Severity Reaction Status Date / Time No Known Drug Allergies Allergy Verified 06/08/18 07:52 Anes History & Medical History - Anesthetic History Anesthesia Complications: reports: No previous complications - Medical History Cardiovascular: reports: Hypertension, High cholesterol, Coronary artery disease (questionable, stent and/or angioplasty) Pulmonary: reports: Sleep apnea (Does not use CPAP) Gastrointestinal: reports: GERD, Ulcers, Colon polyps Urinary: reports: Benign prostate hypertrophy, Retention, Renal insuffiency Neuro: reports: None Musculoskeletal: reports: Osteoarthritis Endocrine/Autoimmune: reports: Type 2 diabetes Blood Disorders: reports: None Skin: reports: Other Smoking Status: Former smoker (Quit in 2001) Psychosocial: reports: No issues indicated - Surgical History General: Appendectomy, Colonoscopy Cardiothoracic: Cardiac catheterization Orthopedic: Hip replacement, Amputation Exam General: Alert, Oriented x3, Cooperative, No acute distress Dental: Poor dentition (Multiple missing) Mouth Openin Fingerbreadth Neck Mobility: Normal Mallampati classification: III Thyromental Distance: 4-6 cm Respiratory: Lungs clear, Normal breath sounds, No respiratory distress, No accessory muscle use Cardiovascular: Regular rate, Normal S1, Normal S2, No murmurs Mental/Cognitive Status: Alert/Oriented X3, Normal for patient Cognitive Status: Within normal limits Plan Anesthesia Type: General Consent for Procedure(s) Verified and Reviewed: Yes Code Status: Attempt Resuscitation ASA classification: 3-Severe systemic disease Is this case an emergency?: No
[2018-08-17 11:40] LABS: CALCIUM 9.1 mg/dL (8.5-10.3); CREATININE 1.5 mg/dL (0.6-1.2)
[2018-08-17] MEDS ORDERED: ceFAZolin 2 GM/50 ML 2 GM/50 ML BAG IV ONE (11:46)
[2018-08-17] MEDS ORDERED: BUPIVACAINE 0.5% PF 30 ML VIAL INFIL ONE (12:13)
[2018-08-17] MEDS ORDERED: MIDAZOLAM 2 MG/2 ML VIAL IVP ONE (12:25)
[2018-08-17] MEDS ORDERED: PROPOFOL 200 MG/20 ML VIAL IVP ONE (12:25)
[2018-08-17 12:35] VITALS: BP 161/68
--- NOTE | 2018-08-17 18:22 | OPERATIVE REPORT ---
DATE OF SERVICE: 08/17/2018 Physician: Macho Hull MD PREOPERATIVE DIAGNOSIS: Right foot fifth toe diabetic ulceration. POSTOPERATIVE DIAGNOSIS: Right foot fifth toe diabetic ulceration. PROCEDURE PERFORMED: Right fifth toe amputation at the metatarsophalangeal joint level. SURGEON: Macho Hull MD. ANESTHESIA: Local. INDICATIONS FOR SURGERY: Patient is a 78-year-old male who has had recent ulceration and infection i n his foot that led to amputation of toes 2, 3, and 4. The patient managed to heal this but had a fi fth toe that was placed under pressure in his shoe, and with weightbearing, had caused ulceration and necrosis at the tip of the toe, and for this reason, it was recommended that he proceed back to [facility] to have amputation of the fifth toe at the level of the fifth metatarsophalangeal joint. DESCRIPTION OF OPERATIVE PROCEDURE: The patient was taken to the operating room. He was given a sed ation IV by anesthesia. He was in the supine position on the OR table. A tourniquet was not used. His foot and ankle were sterilely prepped and draped in the standard fashion. A surgical timeout was held, after which a marking pen was used to define an amputation level just distal to the MP joint a nd the soft tissue so that flaps could be created, and the incisions were then directly taken down to bone after infiltrating the tissues with Marcaine plain. The incision was taken down, and the joint identified and the toe removed. The soft tissues were then gently retracted to expose the metatarsa l head, and bony prominence was removed from the metatarsal head so that the patient would not procee d to have pressure points and break down. The area was flushed of bony and cartilage debris. The fl aps were contoured slightly so the closure would have no tension, and after this an interrupted closu re was done with a 3-0 nylon. There was bleeding, and the edges appeared healthy and there was no in fection in the tissues. Soft dressings were applied. The patient was taken to recovery room in stab le condition. ESTIMATED BLOOD LOSS: Minimal. COMPLICATIONS: None. COUNTS: Sponge and needle counts correct. TD: 08/17/2018 13:37
== END 2018-08-17 10:48 | disposition home or self-care (01) ==
LOC: SDS 10:47
PROVIDERS: ATTEND Orthopaedic Surgery
PROC: 0Y6X0Z0 Detachment at Right 5th Toe, Complete, Open Approach (ICD-10-PCS; principal; 2018-08-17 12:45)
DX: L89.899 Pressure ulcer of other site, unspecified stage (principal); L03.031 Cellulitis of right toe; E11.42 Type 2 diabetes mellitus with diabetic polyneuropathy; E11.319 Type 2 diabetes mellitus with unspecified diabetic retinopathy without macular edema; E11.51 Type 2 diabetes mellitus with diabetic peripheral angiopathy without gangrene; E11.22 Type 2 diabetes mellitus with diabetic chronic kidney disease; N18.3 Chronic kidney disease, stage 3 (moderate); D63.1 Anemia in chronic kidney disease; I12.9 Hypertensive chronic kidney disease with stage 1 through stage 4 chronic kidney disease, or unspecified chronic kidney disease; G47.30 Sleep apnea, unspecified; I25.10 Atherosclerotic heart disease of native coronary artery without angina pectoris; E66.01 Morbid (severe) obesity due to excess calories; Z89.421 Acquired absence of other right toe(s); Z87.891 Personal history of nicotine dependence; Z79.4 Long term (current) use of insulin; Z79.899 Other long term (current) drug therapy; Z68.35 Body mass index [BMI] 35.0-35.9, adult; Z79.82 Long term (current) use of aspirin
CPT/HCPCS: 28820; 80048; J0690; J7120

== ENCOUNTER 2018-11-09 09:26 | Outpatient (CLI) | payer MEDICARE ==
--- NOTE | 2018-11-10 10:14 | XRAY Report ---
Reason: CHARCOT FOOT DISEASE Procedure Date: 11/09/2018 Accession Number: [id number] / [id number] Procedure: XR - Foot 3 View LT CPT Code: FULL RESULT: EXAM: LEFT FOOT RADIOGRAPHY EXAM DATE: 11/09/2018 08:55 AM. CLINICAL HISTORY: Charcot foot disease. COMPARISON: FOOT 3 VIEW RT 05/14/2018 8:05 AM. TECHNIQUE: 3 views. FINDINGS: Bones: Inferior calcaneal spurring. Joints: Pes planus with degenerative collapse of the hindfoot articulations, Charcot foot overall progressed compared to April. Advanced degenerative changes of the first metatarsophalangeal joint. Soft Tissues: Vascular calcifications. IMPRESSION: Presumably neuropathic hindfoot changes with collapse, progression from prior. RADIA
== END 2018-11-09 09:27 | disposition home or self-care (01) ==
LOC: DI 09:26
PROVIDERS: ATTEND Podiatrist
DX: A52.16 Charcot's arthropathy (tabetic) (principal)

== ENCOUNTER 2019-02-03 10:58 | Outpatient (CLI) | payer MEDICARE ==
[2019-02-03 11:46] LABS: ALBUMIN 3.9 g/dL (3.2-5.5); ALKALINE PHOSPHATASE 103 IU/L (42-121); ALT ALANINE AMINOTRANSFERASE 25 IU/L (10-60); AST ASPARTATE AMINOTRANSFERASE 30 IU/L (10-42); BILIRUBIN,TOTAL 0.6 mg/dL (0.2-1.0); BUN - BLOOD UREA NITROGEN 38 mg/dL (6-20); CARBON DIOXIDE - CO2 24 mmol/L (21-32); CHLORIDE 102 mmol/L (101-111); CHOL/HDL RATIO 4.2 (<5.0); CHOLESTEROL 137 mg/dL; CREATININE 1.6 mg/dL (0.6-1.2); GFR - MDRD 42 (>89); GLUCOSE 177 mg/dL (70-100); HDL CHOLESTEROL 33 mg/dL; LDL CHOLESTEROL,CALCULATED 50 mg/dL; LDL/HDL RATIO 1.5 (<3.6); SODIUM 136 mmol/L (135-145); TOTAL PROTEIN 7.7 g/dL (6.7-8.2); VLDL CHOLESTEROL 54 mg/dL
[2019-02-03 12:01] LABS: CREATININE,URINE 138.7 mg/dL; MICROALBUM/CREATININE RATIO,UR 444.1 ug/mg (<30.0); MICROALBUMIN,URINE 61.6 mg/dL (0-300.0)
[2019-02-03 13:26] LABS: BASOPHILS # (AUTO) 0.1 10^3/uL (0.0-0.1); BASOPHILS % (AUTO) 0.6 %; EOSINOPHILS # (AUTO) 0.3 10^3/uL (0.0-0.7); EOSINOPHILS % (AUTO) 3.3 %; HGB - HEMOGLOBIN 13.2 g/dL (14.0-18.0); LYMPHOCYTES # (AUTO) 1.8 10^3/uL (1.5-3.5); MEAN CORPUSCULAR HGB CONC 32.6 g/dL (32.0-36.0); MEAN PLATELET VOLUME 8.4 fL (7.4-11.4); MONOCYTES # (AUTO) 0.7 10^3/uL (0.0-1.0); MONOCYTES % (AUTO) 7.3 %; NEUTROPHILS # (AUTO) 6.3 10^3/uL (1.5-6.6); NEUTROPHILS % (AUTO) 68.8 %; PLT - PLATELET COUNT 233 10^3/uL (130-450); RED BLOOD COUNT 4.53 10^6/uL (4.70-6.10); RED CELL DISTRIBUTION WIDTH 14.9 % (12.0-15.0); WHITE BLOOD COUNT 9.2 x10^3/uL (4.8-10.8)
[2019-02-03 14:29] LABS: HB2 TOTAL 14.2 g/dL; HEMOGLOBIN A1C 0.79 g/dL; HEMOGLOBIN A1C % 7.2 % (4.6-6.2)
== END 2019-02-03 10:59 | disposition home or self-care (01) ==
LOC: LAB 10:58
PROVIDERS: ATTEND Internal Medicine
DX: E78.5 Hyperlipidemia, unspecified (principal); E11.51 Type 2 diabetes mellitus with diabetic peripheral angiopathy without gangrene
CPT/HCPCS: 36415; 80053; 80061; 82043; 82570; 83036; 83721; 85025

== ENCOUNTER 2019-02-09 11:14 | Outpatient (CLI) | payer MEDICARE ==
--- NOTE | 2019-02-09 13:09 | XRAY Report ---
Reason: L FOOT CHARCOT JOINT DISEASE Procedure Date: 02/09/2019 Accession Number: [id number] / [id number] Procedure: XR - Foot 3 View LT CPT Code: FULL RESULT: EXAM: LEFT FOOT RADIOGRAPHY EXAM DATE: 02/09/2019 11:38 AM. CLINICAL HISTORY: Left foot Charcot joint disease. COMPARISON: FOOT 3 VIEW LT 11/09/2018 8:44 AM. TECHNIQUE: 3 views. FINDINGS: Bones: No fracture is detected. Joints: Midfoot derangement with increasing sclerosis consistent with provided history. There is also joint space destruction at the first metatarsophalangeal joint, similar in appearance to prior. Pes planus. Soft Tissues: Vascular calcification. IMPRESSION: Midfoot derangement as well as pes planus. Peripheral arterial disease. RADIA
== END 2019-02-09 11:15 | disposition home or self-care (01) ==
LOC: DI 11:14
PROVIDERS: ATTEND Podiatrist
DX: A52.16 Charcot's arthropathy (tabetic) (principal); I73.9 Peripheral vascular disease, unspecified; M21.42 Flat foot [pes planus] (acquired), left foot

== ENCOUNTER 2019-04-27 08:21 | Outpatient (CLI) | payer MEDICARE ==
--- NOTE | 2019-04-27 10:22 | XRAY Report ---
Reason: Matthew ANAYA CHARCOT JOINT Procedure Date: 04/27/2019 Accession Number: [id number] / [id number] Procedure: XR - Foot 3 View LT CPT Code: FULL RESULT: EXAM: LEFT FOOT RADIOGRAPHY EXAM DATE: 04/27/2019 08:34 AM. CLINICAL HISTORY: Left foot Charcot joint. COMPARISON: FOOT 3 VIEW LT 02/09/2019 11:38 AM. TECHNIQUE: 3 views. FINDINGS: Bones: The base of the fifth metatarsal is noted to be deformed, site of question of prior fracture. Moderate inferior calcaneal spurring is noted. Os trigonum is noted. No acute fracture is seen. Joints: Degenerative changes and loss of joint space and normal relationships in the midfoot have progressed. There is increasing loss of joint space with sclerosis and periarticular osteopenia as well as osteophyte formation of the first metatarsophalangeal articulation, progression of similar previous findings. Pes planus deformity. Soft Tissues: Vascular calcifications are noted. IMPRESSION: Pes planus with midfoot degenerative changes, compatible with provided history. Other degenerative changes and incidental os trigonum as described above. RADIA
== END 2019-04-27 08:22 | disposition home or self-care (01) ==
LOC: DI 08:21
PROVIDERS: ATTEND Podiatrist
DX: A52.16 Charcot's arthropathy (tabetic) (principal); M21.42 Flat foot [pes planus] (acquired), left foot; M19.072 Primary osteoarthritis, left ankle and foot

== ENCOUNTER 2019-11-07 08:00 | Outpatient (CLI) | payer MEDICARE | END 2019-11-07 23:59 | disposition home or self-care (01) | LOC: LAB.R 08:00 | PROVIDERS: ATTEND Podiatrist | DX: E11.622 Type 2 diabetes mellitus with other skin ulcer (principal) | CPT/HCPCS: 87070; 87077; 87181; 87205 ==

== ENCOUNTER 2019-11-21 08:50 | Outpatient (CLI) | payer MEDICARE ==
[2019-11-21 09:08] LABS: BASOPHILS % (AUTO) 0.4 %; EOSINOPHILS # (AUTO) 0.2 10^3/uL (0.0-0.7); HGB - HEMOGLOBIN 13.1 g/dL (14.0-18.0); LYMPHOCYTES # (AUTO) 1.4 10^3/uL (1.5-3.5); LYMPHOCYTES % (AUTO) 15.8 %; MEAN CORPUSCULAR HEMOGLOBIN 29.8 pg (27.0-31.0); MEAN CORPUSCULAR HGB CONC 31.4 g/dL (32.0-36.0); MEAN CORPUSCULAR VOLUME 94.8 fL (80.0-94.0); MEAN PLATELET VOLUME 10.6 fL (7.4-11.4); MONOCYTES # (AUTO) 0.6 10^3/uL (0.0-1.0); MONOCYTES % (AUTO) 6.4 %; NEUTROPHILS # (AUTO) 6.8 10^3/uL (1.5-6.6); PLT - PLATELET COUNT 182 10^3/uL (130-450); RED CELL DISTRIBUTION WIDTH 13.6 % (12.0-15.0); WHITE BLOOD COUNT 9.1 x10^3/uL (4.8-10.8)
[2019-11-21 09:23] LABS: ALBUMIN 3.6 g/dL (3.2-5.5); ALBUMIN/GLOBULIN RATIO 0.9 (1.0-2.2); BILIRUBIN,TOTAL 0.8 mg/dL (0.2-1.0); CALCIUM 8.8 mg/dL (8.5-10.3); CREATININE 1.6 mg/dL (0.6-1.2); TOTAL PROTEIN 7.8 g/dL (6.7-8.2)
[2019-11-21 09:24] LABS: HB2 TOTAL 13.2 g/dL; HEMOGLOBIN A1C 0.83 g/dL; HEMOGLOBIN A1C % 7.9 % (4.6-6.2)
[2019-11-21 09:39] LABS: CREATININE,URINE 158.1 mg/dL; MICROALBUM/CREATININE RATIO,UR 574.3 ug/mg (<30.0); MICROALBUMIN,URINE 90.8 mg/dL (0-300.0)
== END 2019-11-21 08:51 | disposition home or self-care (01) ==
LOC: LAB 08:50
PROVIDERS: ATTEND Internal Medicine
DX: E11.42 Type 2 diabetes mellitus with diabetic polyneuropathy (principal)
CPT/HCPCS: 36415; 80053; 82043; 82570; 83036; 85025

== ENCOUNTER 2020-07-14 18:55 | Outpatient (CLI) | payer MEDICARE | END 2020-07-14 18:56 | disposition EMS.NT | LOC: EMS 18:55 | PROVIDERS: ATTEND Surgery | DX: R41.82 Altered mental status, unspecified (principal) ==

== ENCOUNTER 2021-02-25 09:55 | Outpatient (CLI) | payer MEDICARE | END 2021-02-25 09:56 | disposition home or self-care (01) | LOC: LAB 09:55 | PROVIDERS: ATTEND Internal Medicine | DX: Z53.9 Procedure and treatment not carried out, unspecified reason (principal) ==

== ENCOUNTER 2021-02-26 08:18 | Outpatient (CLI) | payer MEDICARE ==
[2021-02-26 08:36] LABS: BASOPHILS % (AUTO) 0.5 %; EOSINOPHILS # (AUTO) 0.2 10^3/uL (0.0-0.7); EOSINOPHILS % (AUTO) 2.5 %; HCT - HEMATOCRIT 44.6 % (42.0-52.0); HGB - HEMOGLOBIN 14.6 g/dL (14.0-18.0); LYMPHOCYTES # (AUTO) 1.5 10^3/uL (1.5-3.5); LYMPHOCYTES % (AUTO) 18.8 %; MEAN CORPUSCULAR HEMOGLOBIN 30.5 pg (27.0-31.0); MEAN CORPUSCULAR HGB CONC 32.7 g/dL (32.0-36.0); MEAN CORPUSCULAR VOLUME 93.3 fL (80.0-94.0); MEAN PLATELET VOLUME 10.7 fL (7.4-11.4); MONOCYTES # (AUTO) 0.6 10^3/uL (0.0-1.0); MONOCYTES % (AUTO) 8.2 %; NEUTROPHILS # (AUTO) 5.4 10^3/uL (1.5-6.6); NEUTROPHILS % (AUTO) 69.7 %; PLT - PLATELET COUNT 175 10^3/uL (130-450); RED BLOOD COUNT 4.78 10^6/uL (4.70-6.10); RED CELL DISTRIBUTION WIDTH 13.6 % (12.0-15.0); WHITE BLOOD COUNT 7.7 x10^3/uL (4.8-10.8)
[2021-02-26 08:53] LABS: ALBUMIN 4.3 g/dL (3.2-5.5); ALBUMIN/GLOBULIN RATIO 1.2 (1.0-2.2); ALKALINE PHOSPHATASE 110 IU/L (42-121); ALT ALANINE AMINOTRANSFERASE 24 IU/L (10-60); AST ASPARTATE AMINOTRANSFERASE 23 IU/L (10-42); BILIRUBIN,TOTAL 0.6 mg/dL (0.2-1.0); BUN - BLOOD UREA NITROGEN 50 mg/dL (6-20); CALCIUM 9.5 mg/dL (8.5-10.3); CARBON DIOXIDE - CO2 28 mmol/L (21-32); CHLORIDE 100 mmol/L (101-111); CHOL/HDL RATIO 4.1 (<5.0); CHOLESTEROL 146 mg/dL; GFR - MDRD 32 (>89); GLUCOSE 225 mg/dL (70-100); HDL CHOLESTEROL 36 mg/dL; LDL CHOLESTEROL,CALCULATED 93 mg/dL; LDL/HDL RATIO 2.6 (<3.6); SODIUM 139 mmol/L (135-145); TRIGLYCERIDES 85 mg/dL; VLDL CHOLESTEROL 17 mg/dL
== END 2021-02-26 08:19 | disposition home or self-care (01) ==
LOC: LAB 08:18
PROVIDERS: ATTEND Internal Medicine
DX: E11.9 Type 2 diabetes mellitus without complications (principal); E78.5 Hyperlipidemia, unspecified
CPT/HCPCS: 36415; 80053; 80061; 82043; 82570; 83721; 85025

== ENCOUNTER 2021-03-30 08:03 | Outpatient (CLI) | payer MEDICARE ==
--- NOTE | 2021-03-30 19:06 | Ultrasound Report ---
PROCEDURE: Bladder INDICATIONS: BLADDER OUTFLOW OBSTRUCTION TECHNIQUE: Resent ultrasound scanning was performed of the bladder, with image documentation. Color D oppler ultrasound was also utilized. COMPARISON: 02/19/2015, 01/14/2007, 12/15/2008 FINDINGS: The prevoid bladder volume is 334 cc. The post void bladder volume is 332 cc. Both ureteral jets can be seen. The prostate is not enlarged, measuring 3.1 x 2.3 x 4.3 cm. IMPRESSION: Prominent post void residual, 332 cc. Reviewed by: Elias Hernandez MD on 03/30/2021 6:04 PM MARILIA Approved by: Elias Hernandez MD on 03/30/2021 6:04 PM MARILIA Station ID: [id number]
== END 2021-03-30 08:04 | disposition home or self-care (01) ==
LOC: DI 08:03
PROVIDERS: ATTEND Internal Medicine
DX: N32.0 Bladder-neck obstruction (principal)

== ENCOUNTER 2021-04-04 08:34 | Outpatient (CLI) | payer MEDICARE ==
[2021-04-04 09:46] LABS: CREATININE,URINE 140.4 mg/dL; PROTEIN/CREATININE RATIO,URINE 0.7 (<=0.2)
== END 2021-04-04 08:35 | disposition home or self-care (01) ==
LOC: LAB 08:34
PROVIDERS: ATTEND Internal Medicine Nephrology
DX: R80.9 Proteinuria, unspecified (principal)
CPT/HCPCS: 82570; 84156

== ENCOUNTER 2021-04-24 08:45 | Outpatient (CLI) | payer MEDICARE ==
--- NOTE | 2021-04-24 10:54 | XRAY Report ---
PROCEDURE: Ankle 3 View LT INDICATIONS: EDEMA TECHNIQUE: 3 views of the ankle were acquired. COMPARISON: 07/01/2018 plain films FINDINGS: Bones: No acute fractures or dislocations. There is pes planus alignment. There is progressive, sev ere joint space narrowing and periarticular osteophyte formation involving the subtalar joint. Mild a rticular osteophyte formation at the tibiotalar joint.. Ankle mortise is normally aligned. No suspic ious bony lesions. Soft tissues: No tibiotalar joint effusion. Achilles tendon appears normal. IMPRESSION: 1. Pes planus. 2. Progressive subtalar joint osteoarthritis, possibly indicating underlying Charcot arthropathy. 3. No acute fracture. No osseous lesion. If symptoms and/or clinical suspicion for pathology continue , further assessment with repeat plain films, or advanced imaging (e.g., CT, MRI, or bone scan) is re commended for further assessment. Reviewed by: Abdi Roman MD on 04/24/2021 10:52 AM PDT Approved by: Abdi Roman MD on 04/24/2021 10:52 AM PDT Station ID: [id number]
--- NOTE | 2021-04-24 11:19 | XRAY Report ---
PROCEDURE: Foot 3 View LT INDICATIONS: EDEMA TECHNIQUE: 3 views of the foot were acquired. COMPARISON: None FINDINGS: Severe first MTP joint degeneration with [id number] appearance. There is diffuse interphalangeal os teoarthritis which is not well seen secondary to flexion of the toes. No acute fracture identified. D iffuse hindfoot and midfoot joint degeneration. Scattered vascular calcifications are noted. Large pl kai calcaneal spur. There is suggestion of pes planus although this would be better assessed with w eightbearing views. Prominent dorsal osteophyte at the first MTP joint degeneration raising possibili ty of hallux rigidus. IMPRESSION: Severe osteoarthritis as above. Prominent dorsal osteophyte at the first MTP joint raises the possibility of hallux rigidus. Pes planus appearance however weightbearing views would be more specific. Large plantar calcaneal spur. Reviewed by: Jeremi Artis MD on 04/24/2021 11:17 AM PDT Approved by: Jeremi Artis MD on 04/24/2021 11:17 AM PDT Station ID: [id number]
== END 2021-04-24 08:46 | disposition home or self-care (01) ==
LOC: DI 08:45
PROVIDERS: ATTEND Podiatrist
DX: M19.072 Primary osteoarthritis, left ankle and foot (principal); M21.42 Flat foot [pes planus] (acquired), left foot; M77.32 Calcaneal spur, left foot

== ENCOUNTER 2021-05-07 09:12 | Outpatient (CLI) | payer MEDICARE ==
--- NOTE | 2021-05-07 12:25 | MRI Report ---
PROCEDURE: Ankle LT W/O INDICATIONS: CHANGES IN LEFT ANKLE TECHNIQUE: Noncontrast Magnetic Resonance Imaging (MRI) of the ankle/hindfoot was performed utilizing the follow ing sequences: sagittal T1 spin echo, sagittal STIR, axial PD fast spin echo, axial T2 fast spin echo with fat saturation, coronal T1 spin echo and STIR. COMPARISON: Left ankle and foot radiographs 04/24/2021 FINDINGS: Image quality: Excellent. Bones and joints: No acute trabecular bone injury. No osteochondral lesion is seen in the talar dome. There is pes plan us alignment. Hindfoot valgus is also seen. Severe degenerative changes are seen between the lateral process of the talus and the adjacent portion of the calcaneus at the angle of Gissane with prominent cystic changes and osseous edema. Degenerative changes are also seen between the lateral process of the talus and the distal fibular tip with mild cystic changes and edema. Degenerative changes are not ed in the dorsal aspect of the talonavicular joint. Medial structures: The deep fibers of the deltoid ligament are intact. There is medial bowing of the tibiospring ligamen t around the talar head. The posterior tibialis tendon is intact. The flexor digitorum longus and fle xor hallucis longus tendons are intact. The posterior tibial neurovascular bundle appears normal with in the tarsal tunnel, without extrinsic mass effect. Lateral structures: The anterior and posterior distal tibiofibular ligaments are also intact. The anterior talofibular li gament appears mildly thickened and indistinct, likely related to a prior sprain. The calcaneofibular ligament is not well-visualized, likely due to changes from hindfoot valgus and probable superimpose d chronic sprain.. The posterior talofibular ligament is mildly indistinct, but appears to be grossly intact. The peroneus brevis and longus tendons demonstrate mild tendinosis. A probable accessory per oneus quartus tendon is present with severe fatty infiltration of the peroneus quartus muscle. There is loss of normal fat signal within the sinus tarsi. Anterior structures: The tibialis anterior, extensor hallucis longus, and extensor digitorum longus tendons appear intact. Posterior and plantar structures: The Achilles tendon is intact. There is prominent thickening of the proximal plantar fascia with inte rmediate internal signal intensity. No surrounding edema. A nonedematous plantar calcaneal spur is pr esent. Moderate fatty infiltration of the abductor digit minimi muscle may be secondary to chronic de nervation changes. There is mild fatty infiltration of the visualized lower leg and intrinsic foot mu scles. Mild nonspecific subcutaneous edema is seen surrounding the ankle. IMPRESSION: 1. Pes planus and hindfoot valgus alignment is seen with resulting prominent degenerative changes be tween the lateral talus and the central calcaneus as well as the distal fibular tip, consistent with lateral hindfoot impingement. There is medial bowing of the tibiospring ligament around the talar hea d. The posterior tibialis tendon is intact. 2. Chronic sprains of the anterior talofibular ligament and calcaneofibular ligament. 3. Mild peroneus brevis and longus tendinosis. 4. Chronic moderate to severe proximal plantar fasciitis. 5. Moderate fatty infiltration of the abductor digit minimi muscle may be related to chronic denerva tion changes. Reviewed by: Dk Hampton MD on 05/07/2021 11:24 AM [facility] Approved by: Dk Hampton MD on 05/07/2021 11:24 AM [facility]IL[facility] Station ID: [id number]
== END 2021-05-07 09:13 | disposition home or self-care (01) ==
LOC: DI 09:12
PROVIDERS: ATTEND Podiatrist
DX: M19.072 Primary osteoarthritis, left ankle and foot (principal); M21.072 Valgus deformity, not elsewhere classified, left ankle; M21.42 Flat foot [pes planus] (acquired), left foot; S93.492A Sprain of other ligament of left ankle, initial encounter; S93.412A Sprain of calcaneofibular ligament of left ankle, initial encounter; M72.2 Plantar fascial fibromatosis

== ENCOUNTER 2021-07-02 12:00 | Outpatient (CLI) | payer MEDICARE | END 2021-07-02 23:59 | disposition home or self-care (01) | LOC: LAB.R 12:00 | PROVIDERS: ATTEND Podiatrist | DX: E11.622 Type 2 diabetes mellitus with other skin ulcer (principal) | CPT/HCPCS: 87070; 87181; 87205 ==

== ENCOUNTER 2021-07-05 16:23 | Outpatient (CLI) | payer MEDICARE ==
--- NOTE | 2021-07-06 11:30 | Ultrasound Report ---
PROCEDURE: Duplex Lwr Ext Arterial LT INDICATIONS: TYPE 2 DIABETES MELLITUS WITH OTHER SKIN ULCER TECHNIQUE: Color and pulse Doppler interrogation was performed of the left lower extremity arterial system, with image documentation. COMPARISON: 05/19/2018 FINDINGS: Common femoral artery: 183 cm/sec, with triphasic flow. Deep femoral artery: 132 cm/sec, with triphasic flow. Proximal superficial femoral artery: 133 cm/sec, with triphasic flow. Mid superficial femoral artery: 61 cm/sec, with monophasic flow. Distal superficial femoral artery: 66 cm/sec, with monophasic flow. Popliteal artery: 52 cm/sec, with monophasic flow. Posterior tibial artery: No flow seen Anterior tibial artery/dorsalis pedis: 16.8/44 cm/sec, with monophasic/monophasic flow. Juarez-scale imaging description: Atherosclerotic plaque is seen. Distal edema is seen. IMPRESSION: No flow seen within the posterior tibial artery. Monophasic flow is seen beginning at the level of the left mid superficial femoral artery, which is c onsistent with a hemodynamically significant stenosis. Overall, the examination has worsened compared to 2018. Interventional radiology consultation is recommended. Reviewed by: Elias Hernandez MD on 07/06/2021 10:28 AM [facility] Approved by: Elias Hernandez MD on 07/06/2021 10:28 AM [facility]IL[facility] Station ID: [id number]
== END 2021-07-05 16:24 | disposition home or self-care (01) ==
LOC: DI 16:23
PROVIDERS: ATTEND Podiatrist
DX: E11.622 Type 2 diabetes mellitus with other skin ulcer (principal); E11.51 Type 2 diabetes mellitus with diabetic peripheral angiopathy without gangrene; L97.929 Non-pressure chronic ulcer of unspecified part of left lower leg with unspecified severity; I70.249 Atherosclerosis of native arteries of left leg with ulceration of unspecified site

== ENCOUNTER 2021-07-05 16:24 | Outpatient (CLI) | payer MEDICARE ==
--- NOTE | 2021-07-06 11:26 | Ultrasound Report ---
PROCEDURE: Ankle Brachial Index INDICATIONS: PERIPHERAL VASCULAR DISEASE TECHNIQUE: Ankle-brachial indices were obtained bilaterally and recorded. COMPARISONS: 05/19/2018. Correlation is also made with the accompanying ultrasound duplex examination, 07/05/2021. FINDINGS: Right ankle brachial index (HAIR): 1.1 Left ankle brachial index (HAIR): 0.6 Healing potential: Ankle pressures >55 mm Hg in non-diabetics and >80 mm Hg in diabetics are likely to achieve primary h ealing of ischemic foot ulcers. Toe pressures >30 mm Hg are likely to achieve primary healing of ischemic foot ulcers, toe or transme tatarsal amputations. IMPRESSION: Moderately reduced right left brachial index, which has worsened compared to 2018. Reviewed by: Elias Hernandez MD on 07/06/2021 10:25 AM [facility] Approved by: Elias Hernandez MD on 07/06/2021 10:25 AM MARIL[facility] Station ID: [id number]
== END 2021-07-05 16:25 | disposition home or self-care (01) ==
LOC: DI 16:24
PROVIDERS: ATTEND Internal Medicine
DX: I73.9 Peripheral vascular disease, unspecified (principal); E11.622 Type 2 diabetes mellitus with other skin ulcer; E11.51 Type 2 diabetes mellitus with diabetic peripheral angiopathy without gangrene; L97.929 Non-pressure chronic ulcer of unspecified part of left lower leg with unspecified severity; I70.249 Atherosclerosis of native arteries of left leg with ulceration of unspecified site
CPT/HCPCS: 93922

== ENCOUNTER 2021-09-11 10:30 | Outpatient (CLI) | payer MEDICARE | END 2021-09-11 23:59 | disposition home or self-care (01) | LOC: LAB 10:30 | PROVIDERS: ATTEND Podiatrist | DX: E11.622 Type 2 diabetes mellitus with other skin ulcer (principal) | CPT/HCPCS: 87070; 87181; 87205 ==

== ENCOUNTER 2021-10-16 15:00 | Outpatient (CLI) | payer MEDICARE | END 2021-10-16 23:59 | disposition home or self-care (01) | LOC: LAB.R 15:00 | PROVIDERS: ATTEND Podiatrist | DX: E11.622 Type 2 diabetes mellitus with other skin ulcer (principal) | CPT/HCPCS: 87070; 87077; 87181; 87205 ==

== ENCOUNTER 2021-10-23 07:54 | Outpatient (CLI) | payer MEDICARE ==
[2021-10-23] MEDS ORDERED: GADOBUTROL 15 MMOL/15 ML VIAL ONE (08:16)
--- NOTE | 2021-10-23 12:38 | MRI Report ---
PROCEDURE: Foot LT W/WO INDICATIONS: HEAL ULCERATION LEFT FOOT DETERIORATING W/SINUS TR CONTRAST: IV CONTRAST: Gadavist ml: 10 TECHNIQUE: Noncontrast sagittal T1 spin echo and T2 fast spin echo with fat saturation, long-axis T1 spin echo a nd T2 fast spin echo with fat saturation; short-axis T1 spin echo, proton density fast spin echo, and T2 fast spin echo with fat saturation through the forefoot. Post-contrast short axis, long axis, an d sagittal T1 spin echo with fat saturation through the forefoot. COMPARISON: May 07, 2021. FINDINGS: Image quality: Excellent. Bones and joints: T2 hyperintense/T1 hypointense signal is seen in the plantar aspect of the calcaneu s (1301-17), which exhibits contrast enhancement and is compatible with acute osteomyelitis. Similar abnormal signal is seen in the lateral malleolus (1301-12), which may reflect osteomyelitis. Areas of subchondral edema are seen about the talocalcaneal articulation, compatible with degenerativ e change. Persistent small amount of fluid within the subtalar articulation. Soft tissues: Reticulated and confluent T2 hyperintense signal is seen in the plantar subcutaneous so ft tissue/fat with defect extending through the plantar fascia to the calcaneus (1301-18), compatible with the patient's known sinus tract. Additional reticulated T2 hyperintense signal seen in the dorsal soft tissues, compatible with edema/ cellulitis. Redemonstrated fatty atrophy of the abductor digiti minimi. The remaining visualized plantar foot mus cles demonstrate normal signal and bulk. Visualized flexor and extensor tendons appear intact, without tenosynovitis. The principal Lisfranc ligament appears intact. IMPRESSION: 1. Abnormal signal and contrast enhancement in the plantar aspect of the calcaneus as well as the lat eral malleolus, most consistent with acute osteomyelitis. 2. Abnormal signal and contrast enhancement in the plantar soft tissues with defect in the plantar fa scia, compatible with the patient's known sinus tract. 3. Persistent small amount of fluid in the subtalar articulation, which may reflect reactive fluid. Reviewed by: Yan Feldman MD on 10/23/2021 12:37 PM PST Approved by: Yan Feldman MD on 10/23/2021 12:37 PM PST Station ID: [id number]
[2021-10-24] MEDS ORDERED: GADOBUTROL 15 MMOL/15 ML VIAL IVP ONE (09:25)
== END 2021-10-23 07:55 | disposition home or self-care (01) ==
LOC: DI 07:54
PROVIDERS: ATTEND Podiatrist
DX: L97.429 Non-pressure chronic ulcer of left heel and midfoot with unspecified severity (principal); R93.6 Abnormal findings on diagnostic imaging of limbs; R93.89 Abnormal findings on diagnostic imaging of other specified body structures
CPT/HCPCS: 73720; A9585

== ENCOUNTER 2021-11-11 16:31 | Outpatient (CLI) | payer MEDICARE ==
[2021-11-11 17:08] LABS: BASOPHILS % (AUTO) 0.5 %; EOSINOPHILS # (AUTO) 0.2 10^3/uL (0.0-0.7); EOSINOPHILS % (AUTO) 3.1 %; HCT - HEMATOCRIT 35.3 % (42.0-52.0); HGB - HEMOGLOBIN 10.6 g/dL (14.0-18.0); LYMPHOCYTES % (AUTO) 16.2 %; MEAN CORPUSCULAR HEMOGLOBIN 25.9 pg (27.0-31.0); MEAN CORPUSCULAR VOLUME 86.3 fL (80.0-94.0); MONOCYTES # (AUTO) 0.5 10^3/uL (0.0-1.0); MONOCYTES % (AUTO) 7.4 %; NEUTROPHILS # (AUTO) 4.6 10^3/uL (1.5-6.6); NEUTROPHILS % (AUTO) 72.6 %; PLT - PLATELET COUNT 168 10^3/uL (130-450); RED BLOOD COUNT 4.09 10^6/uL (4.70-6.10); RED CELL DISTRIBUTION WIDTH 17.1 % (12.0-15.0); WHITE BLOOD COUNT 6.4 x10^3/uL (4.8-10.8)
[2021-11-11 17:27] LABS: BUN - BLOOD UREA NITROGEN 39 mg/dL (6-20); CALCIUM 8.9 mg/dL (8.5-10.3); CARBON DIOXIDE - CO2 25 mmol/L (21-32); CHLORIDE 101 mmol/L (101-111); CREATININE 1.6 mg/dL (0.6-1.2); GFR - MDRD 42 (>89); GLUCOSE 257 mg/dL (70-100); POTASSIUM 4.9 mmol/L (3.5-5.0); SODIUM 134 mmol/L (135-145)
[2021-11-11 17:35] LABS: CRP - C-REACTIVE PROTEIN < 1.0 mg/dL (0-1.0)
== END 2021-11-11 16:32 | disposition home or self-care (01) ==
LOC: LAB.R 16:31
PROVIDERS: ATTEND Internal Medicine
DX: M86.172 Other acute osteomyelitis, left ankle and foot (principal)
CPT/HCPCS: 80048; 85025; 85651; 86140

== ENCOUNTER 2021-11-19 15:34 | Outpatient (CLI) | payer MEDICARE ==
[2021-11-19 15:45] LABS: BASOPHILS % (AUTO) 0.6 %; EOSINOPHILS # (AUTO) 0.2 10^3/uL (0.0-0.7); EOSINOPHILS % (AUTO) 3.1 %; HCT - HEMATOCRIT 34.8 % (42.0-52.0); HGB - HEMOGLOBIN 10.7 g/dL (14.0-18.0); LYMPHOCYTES # (AUTO) 1.5 10^3/uL (1.5-3.5); LYMPHOCYTES % (AUTO) 21.8 %; MEAN CORPUSCULAR HEMOGLOBIN 26.8 pg (27.0-31.0); MEAN CORPUSCULAR HGB CONC 30.7 g/dL (32.0-36.0); MEAN PLATELET VOLUME 11.9 fL (7.4-11.4); MONOCYTES # (AUTO) 0.6 10^3/uL (0.0-1.0); MONOCYTES % (AUTO) 8.2 %; NEUTROPHILS # (AUTO) 4.5 10^3/uL (1.5-6.6); PLT - PLATELET COUNT 156 10^3/uL (130-450); RED CELL DISTRIBUTION WIDTH 17.2 % (12.0-15.0); WHITE BLOOD COUNT 6.8 x10^3/uL (4.8-10.8)
[2021-11-19 16:11] LABS: BUN - BLOOD UREA NITROGEN 36 mg/dL (6-20); CALCIUM 8.5 mg/dL (8.5-10.3); CARBON DIOXIDE - CO2 25 mmol/L (21-32); CHLORIDE 100 mmol/L (101-111); CREATININE 1.5 mg/dL (0.6-1.2); GFR - MDRD 45 (>89); GLUCOSE 188 mg/dL (70-100); POTASSIUM 4.7 mmol/L (3.5-5.0); SODIUM 134 mmol/L (135-145)
[2021-11-19 16:18] LABS: CRP - C-REACTIVE PROTEIN < 1.0 mg/dL (0-1.0)
== END 2021-11-19 15:35 | disposition home or self-care (01) ==
LOC: LAB.R 15:34
PROVIDERS: ATTEND Internal Medicine
DX: M86.172 Other acute osteomyelitis, left ankle and foot (principal)
CPT/HCPCS: 80048; 85025; 85651; 86140

== ENCOUNTER 2021-11-26 12:38 | Outpatient (CLI) | payer MEDICARE ==
[2021-11-26 12:54] LABS: BASOPHILS % (AUTO) 0.5 %; EOSINOPHILS # (AUTO) 0.1 10^3/uL (0.0-0.7); EOSINOPHILS % (AUTO) 1.9 %; HCT - HEMATOCRIT 36.3 % (42.0-52.0); LYMPHOCYTES # (AUTO) 1.3 10^3/uL (1.5-3.5); MEAN CORPUSCULAR HEMOGLOBIN 26.5 pg (27.0-31.0); MEAN CORPUSCULAR HGB CONC 30.3 g/dL (32.0-36.0); MEAN CORPUSCULAR VOLUME 87.5 fL (80.0-94.0); MEAN PLATELET VOLUME 11.8 fL (7.4-11.4); MONOCYTES # (AUTO) 0.6 10^3/uL (0.0-1.0); MONOCYTES % (AUTO) 7.4 %; NEUTROPHILS # (AUTO) 5.4 10^3/uL (1.5-6.6); NEUTROPHILS % (AUTO) 72.9 %; PLT - PLATELET COUNT 162 10^3/uL (130-450); RED BLOOD COUNT 4.15 10^6/uL (4.70-6.10); RED CELL DISTRIBUTION WIDTH 17.6 % (12.0-15.0); WHITE BLOOD COUNT 7.4 x10^3/uL (4.8-10.8)
[2021-11-26 13:21] LABS: CALCIUM 8.8 mg/dL (8.5-10.3); CARBON DIOXIDE - CO2 26 mmol/L (21-32); CHLORIDE 101 mmol/L (101-111); GLUCOSE 263 mg/dL (70-100); POTASSIUM 5.2 mmol/L (3.5-5.0); SODIUM 134 mmol/L (135-145)
[2021-11-26 15:17] LABS: BUN - BLOOD UREA NITROGEN 45 mg/dL (6-20); CREATININE 1.5 mg/dL (0.6-1.2); GFR - MDRD 45 (>89)
[2021-11-26 15:27] LABS: CRP - C-REACTIVE PROTEIN < 1.0 mg/dL (0-1.0)
== END 2021-11-26 12:39 | disposition home or self-care (01) ==
LOC: LAB.R 12:38
PROVIDERS: ATTEND Internal Medicine
DX: M86.172 Other acute osteomyelitis, left ankle and foot (principal); N18.31 Chronic kidney disease, stage 3a
CPT/HCPCS: 80048; 85025; 85651; 86140

== ENCOUNTER 2021-11-28 14:58 | Outpatient (CLI) | payer MEDICARE | END 2021-11-28 14:59 | disposition critical access hospital (66) | LOC: EMS 14:58 | DX: S01.81XA Laceration without foreign body of other part of head, initial encounter (principal); R73.09 Other abnormal glucose; R53.1 Weakness; W18.39XA Other fall on same level, initial encounter; Y92.009 Unspecified place in unspecified non-institutional (private) residence as the place of occurrence of the external cause | CPT/HCPCS: A0425; A0429 ==

== ENCOUNTER 2021-11-28 15:17 | Emergency (ER) | payer MEDICARE ==
[2021-11-28] MEDS ORDERED: SODIUM CHLORIDE 0.9% 1,000 ML IV STA (15:38)
[2021-11-28] MEDS ORDERED: DEXTROSE 50% ABBOJECT 25 GM/50 ML SYRINGE IVP STA (15:39)
--- NOTE | 2021-11-28 15:42 | ED Physician Documentation ---
History of Present Illness - Stated complaint Stated Complaint: GLF - Chief complaint Chief Complaint: Neuro - History obtained from History obtained from: Patient, EMS - Additonal information Additional information: The patient is brought to the emergency department by EMS for chief complaint of hypoglycemia, weakness, and fall at home. The patient states that he is a diabetic and has been on the same medication regimen for "years". He states he has not had any dietary changes. He began to feel weak and slightly shaky, as though his blood sugar was dropping, so he went into the kitchen to make a sandwich. While he was making a sandwich, he suddenly felt weak and fell to the floor. The patient states the weakness was a generalized weakness. When the medics got there, they fed him the sandwich and boost after finding his blood sugar to be in the low 40s. On recheck, the patient's blood sugar was at 50. They fed him another sandwich and another can of boost and then found his blood sugar to be at 60.Since he was responding so slowly into the food, they decided to bring him in. On recheck, just before arrival, they found that his sugar was back down in the 50s. Patient states he still feels a little bit shaky but feels better than he did. He states that when he fell, he did not lose consciousness. He did hit his head on a cabinet door, and according to medics, sustained a small laceration. The patient is currently being treated with IV cefazolin through PICC line for a left lower extremity diabetic foot infection. No fevers or chills. Patient states he is otherwise feeling well. Review of Systems Ten Systems: 10 systems reviewed and negative Constitutional: reports: Reviewed and negative Eyes: reports: Reviewed and negative Ears: reports: Reviewed and negative Nose: reports: Reviewed and negative Throat: reports: Reviewed and negative Cardiac: reports: Reviewed and negative Respiratory: reports: Reviewed and negative GI: reports: Reviewed and negative : reports: Reviewed and negative Skin: reports: Reviewed and negative Musculoskeletal: reports: Reviewed and negative Neurologic: reports: Head injury. denies: LOC Psychiatric: reports: Reviewed and negative Endocrine: reports: Reviewed and negative Immunocompromised: reports: Reviewed and negative PD PAST MEDICAL HISTORY - Past Medical History Cardiovascular: Hypertension, High cholesterol, Coronary artery disease (questionable, stent and/or angioplasty) Respiratory: Sleep apnea (Does not use CPAP) Neuro: None Endocrine/Autoimmune: Type 2 diabetes GI: GERD, Ulcers, Colon polyps : Benign prostate hypertrophy, Retention, Renal insuffiency HEENT: Chronic vision loss, Chronic sinusitis, Other Psych: None Musculoskeletal: Osteoarthritis Derm: Other - Past Surgical History Past Surgical History: Yes General: Appendectomy, Colonoscopy Ortho: Hip replacement, Amputation Cardiovascular: Cardiac catheterization - Present Medications Home Medications: Ambulatory Orders Medication Instructions Recorded Confirmed Atorvastatin Calcium 40 mg PO DAILY 10/14/17 06/08/18 Cholecalciferol (Vitamin D3) 2,000 unit PO DAILY 10/14/17 06/08/18 [Vitamin D3] Finasteride 5 mg PO DAILY 10/14/17 06/08/18 Insulin 70/30 Human [NovoLIN] 44 unit SUBQ 0730,1630 10/14/17 06/08/18 Metoprolol Tartrate 25 mg PO BID 10/14/17 06/08/18 Omeprazole 20 mg PO DAILY 10/14/17 06/08/18 Tamsulosin HCl [Flomax] 0.4 mg PO DAILY 10/14/17 06/08/18 Senna [Senokot] 8.6 mg PO BID PRN 11/03/17 06/08/18 Gabapentin 300 mg PO DAILY 03/09/18 06/08/18 Aspirin 81 mg PO DAILY 05/31/18 06/08/18 Furosemide [Lasix] 20 mg PO DAILY 05/31/18 06/08/18 - Allergies Allergies/Adverse Reactions: Allergies Allergy/AdvReac Type Severity Reaction Status Date / Time No Known Drug Allergies Allergy Verified 11/28/21 15:33 - Social History Does the pt smoke?: No Smoking Status: Former smoker (Quit in 2001) Does the pt drink ETOH?: Yes Does the pt have substance abuse?: No - Immunizations Immunizations are current?: Yes - POLST Patient has POLST: No PD ED PE NORMAL - Vitals Vital signs reviewed: Yes - General General: Alert and oriented X 3, No acute distress, Well developed/nourished - HEENT HEENT: PERRL, EOMI, Moist mucous membranes, Other (5 mm laceration superior occipital area and midline. Oozing of blood. No bony step-off or depression.) - Neck Neck: Supple, no meningeal sign - Cardiac Cardiac: RRR, No murmur, Strong equal pulses - Respiratory Respiratory: No respiratory distress, Clear bilaterally - Abdomen Abdomen: Soft, Non tender, Non distended - Derm Derm: Normal color, Warm and dry, No rash, Other (0.5 mm laceration/skin tear with mild oozing of blood in midline superior occipital area) - Extremities Extremities: No deformity - Neuro Neuro: Alert and oriented X 3 - Psych Psych: Normal mood, Normal affect Results - Vitals Vitals: Vital Signs - 24 hr 11/28/21 11/28/21 15:27 17:06 Temperature 36.4 C L Heart Rate 76 98 Respiratory 16 18 Rate Blood Pressure 182/144 H 129/74 O2 Saturation 99 100 Oxygen O2 Source Room air - Labs Labs: Laboratory Tests 11/28/21 11/28/21 15:49 15:49 WBC 12.5 H RBC 4.40 L Hgb 11.5 L Hct 38.2 L MCV 86.8 MCH 26.1 L MCHC 30.1 L RDW 17.5 H Plt Count 169 MPV 10.3 Neut # (Auto) 10.9 H Lymph # (Auto) 0.8 L Stokes # (Auto) 0.7 Eos # (Auto) 0.0 Baso # (Auto) 0.0 Absolute Nucleated RBC 0.00 Nucleated RBC % 0.0 Sodium 135 Potassium 4.4 Chloride 98 L Carbon Dioxide 27 Anion Gap 10.0 BUN 40 H Creatinine 1.7 H Estimated GFR (MDRD) 39 L Glucose 126 H Calcium 9.1 Total Bilirubin 0.8 AST 26 ALT < 10 L Alkaline Phosphatase 81 Total Protein 7.7 Albumin 3.7 Globulin 4.0 Albumin/Globulin Ratio 0.9 L Lipase 35 - Rads (name of study) Head CT Radiology: Final report received, EMP read indepedently, See rad report (NAD) PD MEDICAL DECISION MAKING - ED course Complexity details: reviewed results, re-evaluated patient, considered differential, d/w patient ED course: The patient initially had a fingerstick glucose in the emergency department of 62, but his glucose on blood work drawn shortly after this was 126. The patient was given an amp of D50 based on the initial fingerstick, but this was done after the blood was drawn but before results were back from it. The patient was also given a liter of 0.9 normal saline. He was found to be feeling much better. Repeat fingerstick glucose Approximately 40 minutes after the D50 was still found to be well over 100. Patient was feeling well and I felt he was stable for discharge home. We have discussed the need to eat regular meals and to follow-up with his primary doctor if he continues to have episodes of low blood sugar with his current insulin regimen, despite no change in eating. Departure - Departure Disposition: 01 Home, Self Care Clinical Impression: Hypoglycemia, Dehydration Scalp wound Qualifiers: Encounter type: initial encounter Open wound type: laceration Foreign body presence: without foreign body Qualified Code(s): S01.01XA - Laceration without foreign body of scalp, initial encounter Condition: Stable Instructions: ED Dehydration, ED Diabetes Hypoglycemia Insulin React Comments: Your blood sugar is doing well now. Your labs showed evidence of some dehydration, and most likely, you have some slowing of your kidneys from your diabetes. However, you will need to talk to your doctor to get a final diagnosis in this regard. You have been treated with IV fluids, as well as IV dextrose, a kind of sugar, today. Please follow-up with your primary doctor if you continue to have episodes of low blood sugar, despite your usual insulin regimen and normal diet. Discharge Date/Time: 11/28/21 17:44
[2021-11-28 15:55] LABS: BASOPHILS % (AUTO) 0.3 %; EOSINOPHILS % (AUTO) 0.3 %; HCT - HEMATOCRIT 38.2 % (42.0-52.0); HGB - HEMOGLOBIN 11.5 g/dL (14.0-18.0); LYMPHOCYTES # (AUTO) 0.8 10^3/uL (1.5-3.5); LYMPHOCYTES % (AUTO) 6.3 %; MEAN CORPUSCULAR HEMOGLOBIN 26.1 pg (27.0-31.0); MEAN CORPUSCULAR HGB CONC 30.1 g/dL (32.0-36.0); MEAN CORPUSCULAR VOLUME 86.8 fL (80.0-94.0); MEAN PLATELET VOLUME 10.3 fL (7.4-11.4); MONOCYTES # (AUTO) 0.7 10^3/uL (0.0-1.0); MONOCYTES % (AUTO) 5.2 %; NEUTROPHILS # (AUTO) 10.9 10^3/uL (1.5-6.6); NEUTROPHILS % (AUTO) 87.6 %; PLT - PLATELET COUNT 169 10^3/uL (130-450); RED CELL DISTRIBUTION WIDTH 17.5 % (12.0-15.0); WHITE BLOOD COUNT 12.5 x10^3/uL (4.8-10.8)
[2021-11-28 16:08] LABS: ALBUMIN 3.7 g/dL (3.2-5.5); ALBUMIN/GLOBULIN RATIO 0.9 (1.0-2.2); ALKALINE PHOSPHATASE 81 IU/L (42-121); ALT ALANINE AMINOTRANSFERASE < 10 IU/L (10-60); AST ASPARTATE AMINOTRANSFERASE 26 IU/L (10-42); BILIRUBIN,TOTAL 0.8 mg/dL (0.2-1.0); BUN - BLOOD UREA NITROGEN 40 mg/dL (6-20); CALCIUM 9.1 mg/dL (8.5-10.3); CARBON DIOXIDE - CO2 27 mmol/L (21-32); CHLORIDE 98 mmol/L (101-111); CREATININE 1.7 mg/dL (0.6-1.2); GFR - MDRD 39 (>89); GLUCOSE 126 mg/dL (70-100); LIPASE 35 U/L (22-51); POTASSIUM 4.4 mmol/L (3.5-5.0); SODIUM 135 mmol/L (135-145); TOTAL PROTEIN 7.7 g/dL (6.7-8.2)
--- NOTE | 2021-11-28 16:16 | CT Report ---
PROCEDURE: HEAD WO INDICATIONS: closed head injury/fall TECHNIQUE: Noncontrast 4.5 mm thick angled axial sections acquired from the foramen magnum to the vertex. For r adiation dose reduction, the following was used: automated exposure control, adjustment of mA and/or kV according to patient size. COMPARISON: None. FINDINGS: Image quality: There is streak artifact seen through the skull base. CSF spaces: Basal cisterns are patent. No extra-axial fluid collections. Ventricles are normal in size and shape. Brain: No midline shift. No intracranial masses or hemorrhage. Juarez-white matter interface is norm al. Skull and face: Calvarium and visualized facial bones are intact, without suspicious lesions. Sinuses: Visualized sinuses and mastoids are clear. IMPRESSION: No intracranial hemorrhage is seen. No significant intracranial abnormality is seen. No displaced fracture can be seen. Age-appropriate brain parenchymal volume loss and chronic small vessel ischemic change can be seen. Reviewed by: Elias Hernandez MD on 11/28/2021 3:14 PM [place] Approved by: Elias Hernandez MD on 11/28/2021 3:14 PM [facility] Station ID: [id number]
[2021-11-28 17:14] VITALS: BP 129/74
== END 2021-11-28 17:44 | disposition home or self-care (01) ==
LOC: EDUNIT# → EDBD → ED 15:17
DX: S01.01XA Laceration without foreign body of scalp, initial encounter (principal); W18.30XA Fall on same level, unspecified, initial encounter; Y93.G3 Activity, cooking and baking; Y92.000 Kitchen of unspecified non-institutional (private) residence as the place of occurrence of the external cause; Y99.9 Unspecified external cause status; E11.649 Type 2 diabetes mellitus with hypoglycemia without coma; Z79.4 Long term (current) use of insulin; Z87.891 Personal history of nicotine dependence
CPT/HCPCS: 36415; 80053; 83690; 85025; 96361; 96374; 99284

== ENCOUNTER 2021-12-03 08:00 | Outpatient (CLI) | payer MEDICARE ==
[2021-12-03 13:16] LABS: BASOPHILS % (AUTO) 0.5 %; EOSINOPHILS # (AUTO) 0.2 10^3/uL (0.0-0.7); EOSINOPHILS % (AUTO) 3.3 %; HCT - HEMATOCRIT 37.8 % (42.0-52.0); HGB - HEMOGLOBIN 11.2 g/dL (14.0-18.0); LYMPHOCYTES # (AUTO) 1.4 10^3/uL (1.5-3.5); LYMPHOCYTES % (AUTO) 22.1 %; MEAN CORPUSCULAR HEMOGLOBIN 25.9 pg (27.0-31.0); MEAN CORPUSCULAR HGB CONC 29.6 g/dL (32.0-36.0); MEAN CORPUSCULAR VOLUME 87.5 fL (80.0-94.0); MEAN PLATELET VOLUME 11.4 fL (7.4-11.4); MONOCYTES # (AUTO) 0.6 10^3/uL (0.0-1.0); MONOCYTES % (AUTO) 9.5 %; NEUTROPHILS # (AUTO) 4.2 10^3/uL (1.5-6.6); NEUTROPHILS % (AUTO) 64.4 %; PLT - PLATELET COUNT 193 10^3/uL (130-450); RED BLOOD COUNT 4.32 10^6/uL (4.70-6.10); WHITE BLOOD COUNT 6.4 x10^3/uL (4.8-10.8)
[2021-12-03 14:04] LABS: BUN - BLOOD UREA NITROGEN 44 mg/dL (6-20); CALCIUM 8.9 mg/dL (8.5-10.3); CARBON DIOXIDE - CO2 26 mmol/L (21-32); CHLORIDE 99 mmol/L (101-111); CREATININE 1.7 mg/dL (0.6-1.2); GFR - MDRD 39 (>89); GLUCOSE 133 mg/dL (70-100); POTASSIUM 5.4 mmol/L (3.5-5.0); SODIUM 133 mmol/L (135-145)
[2021-12-03 14:27] LABS: CRP - C-REACTIVE PROTEIN < 1.0 mg/dL (0-1.0)
== END 2021-12-03 23:59 ==
LOC: LAB.R 08:00
PROVIDERS: ATTEND Internal Medicine
DX: M86.172 Other acute osteomyelitis, left ankle and foot (principal)
CPT/HCPCS: 80048; 85025; 85651; 86140

== ENCOUNTER 2021-12-10 08:00 | Outpatient (CLI) | payer MEDICARE ==
[2021-12-10 12:31] LABS: BASOPHILS # (AUTO) 0.1 10^3/uL (0.0-0.1); BASOPHILS % (AUTO) 0.8 %; EOSINOPHILS # (AUTO) 0.1 10^3/uL (0.0-0.7); EOSINOPHILS % (AUTO) 2.2 %; HCT - HEMATOCRIT 38.6 % (42.0-52.0); HGB - HEMOGLOBIN 11.7 g/dL (14.0-18.0); LYMPHOCYTES # (AUTO) 1.1 10^3/uL (1.5-3.5); LYMPHOCYTES % (AUTO) 17.1 %; MEAN CORPUSCULAR HEMOGLOBIN 26.7 pg (27.0-31.0); MEAN CORPUSCULAR HGB CONC 30.3 g/dL (32.0-36.0); MEAN CORPUSCULAR VOLUME 87.9 fL (80.0-94.0); MEAN PLATELET VOLUME 11.4 fL (7.4-11.4); MONOCYTES # (AUTO) 0.5 10^3/uL (0.0-1.0); MONOCYTES % (AUTO) 7.5 %; NEUTROPHILS # (AUTO) 4.5 10^3/uL (1.5-6.6); NEUTROPHILS % (AUTO) 72.2 %; PLT - PLATELET COUNT 197 10^3/uL (130-450); RED BLOOD COUNT 4.39 10^6/uL (4.70-6.10); RED CELL DISTRIBUTION WIDTH 18.4 % (12.0-15.0); WHITE BLOOD COUNT 6.3 x10^3/uL (4.8-10.8)
[2021-12-10 12:51] LABS: BUN - BLOOD UREA NITROGEN 42 mg/dL (6-20); CARBON DIOXIDE - CO2 25 mmol/L (21-32); CHLORIDE 99 mmol/L (101-111); CREATININE 1.6 mg/dL (0.6-1.2); CRP - C-REACTIVE PROTEIN < 1.0 mg/dL (0-1.0); GFR - MDRD 42 (>89); GLUCOSE 191 mg/dL (70-100); POTASSIUM 4.9 mmol/L (3.5-5.0); SODIUM 134 mmol/L (135-145)
== END 2021-12-10 23:59 | disposition home or self-care (01) ==
LOC: LAB.R 08:00
DX: M86.172 Other acute osteomyelitis, left ankle and foot (principal)
CPT/HCPCS: 80048; 85025; 85651; 86140

== ENCOUNTER 2021-12-17 12:19 | Outpatient (CLI) | payer MEDICARE ==
[2021-12-17 12:29] LABS: BASOPHILS % (AUTO) 0.4 %; EOSINOPHILS # (AUTO) 0.2 10^3/uL (0.0-0.7); EOSINOPHILS % (AUTO) 2.1 %; HCT - HEMATOCRIT 37.4 % (42.0-52.0); HGB - HEMOGLOBIN 11.4 g/dL (14.0-18.0); LYMPHOCYTES # (AUTO) 1.6 10^3/uL (1.5-3.5); LYMPHOCYTES % (AUTO) 22.1 %; MEAN CORPUSCULAR HEMOGLOBIN 26.7 pg (27.0-31.0); MEAN CORPUSCULAR HGB CONC 30.5 g/dL (32.0-36.0); MEAN CORPUSCULAR VOLUME 87.6 fL (80.0-94.0); MEAN PLATELET VOLUME 11.1 fL (7.4-11.4); MONOCYTES # (AUTO) 0.6 10^3/uL (0.0-1.0); MONOCYTES % (AUTO) 8.5 %; NEUTROPHILS # (AUTO) 4.7 10^3/uL (1.5-6.6); NEUTROPHILS % (AUTO) 66.8 %; PLT - PLATELET COUNT 162 10^3/uL (130-450); RED BLOOD COUNT 4.27 10^6/uL (4.70-6.10); RED CELL DISTRIBUTION WIDTH 18.9 % (12.0-15.0)
[2021-12-17 12:47] LABS: BUN - BLOOD UREA NITROGEN 42 mg/dL (6-20); CALCIUM 9.2 mg/dL (8.5-10.3); CARBON DIOXIDE - CO2 27 mmol/L (21-32); CHLORIDE 101 mmol/L (101-111); CREATININE 1.6 mg/dL (0.6-1.2); GFR - MDRD 42 (>89); GLUCOSE 166 mg/dL (70-100); POTASSIUM 5.1 mmol/L (3.5-5.0); SODIUM 136 mmol/L (135-145)
[2021-12-17 13:10] LABS: CRP - C-REACTIVE PROTEIN < 1.0 mg/dL (0-1.0)
== END 2021-12-17 12:20 | disposition home or self-care (01) ==
LOC: LAB.R 12:19
PROVIDERS: ATTEND Internal Medicine
DX: M86.172 Other acute osteomyelitis, left ankle and foot (principal)
CPT/HCPCS: 80048; 85025; 86140

== ENCOUNTER 2022-07-06 16:29 | Outpatient (CLI) | payer MEDICARE | END 2022-07-06 16:30 | disposition critical access hospital (66) | LOC: EMS 16:29 | DX: R41.0 Disorientation, unspecified (principal); E11.65 Type 2 diabetes mellitus with hyperglycemia; Z79.4 Long term (current) use of insulin | CPT/HCPCS: A0425; A0427 ==

== ENCOUNTER 2022-07-06 16:46 | Emergency (ER) | payer MEDICARE ==
--- NOTE | 2022-07-06 17:22 | ED Physician Documentation ---
History of Present Illness - Stated complaint Stated Complaint: AMS - Chief complaint Chief Complaint: Neuro - History obtained from History obtained from: Patient, EMS - History of Present Illness Timing: How many days ago (2) Pain level max: 5 Pain level now: 0 - Additonal information Additional information: Patient is an 82-year-old male sent in for reported altered mental status and pain with urination. The patient states that he has had occasional back pain over the past several weeks. He states that he has had difficulty urinating the last 2 days. He states he is not having any pain right now. Review of Systems Ten Systems: 10 systems reviewed and negative Constitutional: denies: Fever, Chills Ears: denies: Ear pain Nose: denies: Rhinorrhea / runny nose, Congestion Throat: denies: Sore throat Cardiac: denies: Chest pain / pressure Respiratory: denies: Dyspnea, Cough GI: denies: Abdominal Pain, Nausea, Vomiting, Diarrhea : reports: Dysuria Skin: denies: Rash Musculoskeletal: denies: Neck pain Neurologic: denies: Headache PD PAST MEDICAL HISTORY - Past Medical History Cardiovascular: Hypertension, High cholesterol, Coronary artery disease (questionable, stent and/or angioplasty) Respiratory: Sleep apnea (Does not use CPAP) Neuro: None Endocrine/Autoimmune: Type 2 diabetes GI: GERD, Ulcers, Colon polyps : Benign prostate hypertrophy, Retention, Renal insuffiency HEENT: Chronic vision loss, Chronic sinusitis, Other Psych: None Musculoskeletal: Osteoarthritis Derm: Other - Past Surgical History Past Surgical History: Yes General: Appendectomy, Colonoscopy Ortho: Hip replacement, Amputation Cardiovascular: Cardiac catheterization - Present Medications Home Medications: Ambulatory Orders Medication Instructions Recorded Confirmed Atorvastatin Calcium 40 mg PO DAILY 10/14/17 06/08/18 Cholecalciferol (Vitamin D3) 2,000 unit PO DAILY 10/14/17 06/08/18 [Vitamin D3] Finasteride 5 mg PO DAILY 10/14/17 06/08/18 Insulin 70/30 Human [NovoLIN] 44 unit SUBQ 0730,1630 10/14/17 06/08/18 Metoprolol Tartrate 25 mg PO BID 10/14/17 06/08/18 Omeprazole 20 mg PO DAILY 10/14/17 06/08/18 Tamsulosin HCl [Flomax] 0.4 mg PO DAILY 10/14/17 06/08/18 Senna [Senokot] 8.6 mg PO BID PRN 11/03/17 06/08/18 Gabapentin 300 mg PO DAILY 03/09/18 06/08/18 Aspirin 81 mg PO DAILY 05/31/18 06/08/18 Furosemide [Lasix] 20 mg PO DAILY 05/31/18 06/08/18 Cefdinir 300 mg PO BID #20 cap 07/06/22 Oxycodone HCl/Acetaminophen 1 each PO Q6H PRN #12 tablet 07/06/22 [Percocet 5-325 mg Tablet] - Allergies Allergies/Adverse Reactions: Allergies Allergy/AdvReac Type Severity Reaction Status Date / Time No Known Drug Allergies Allergy Verified 11/28/21 15:33 - Social History Does the pt smoke?: No Smoking Status: Former smoker (Quit in 2001) Does the pt drink ETOH?: Yes Does the pt have substance abuse?: No - Immunizations Immunizations are current?: Yes - POLST Patient has POLST: No PD ED PE NORMAL - Vitals Vital signs reviewed: Yes - General General: Alert and oriented X 3, No acute distress - HEENT HEENT: PERRL, Moist mucous membranes - Neck Neck: Supple, no meningeal sign - Cardiac Cardiac: RRR, Strong equal pulses - Respiratory Respiratory: No respiratory distress, Clear bilaterally - Abdomen Abdomen: Soft, Non distended, Other (mild TTP suprapubic without peritoneal signs) - Back Back: No CVA TTP - Derm Derm: Warm and dry, No rash - Extremities Extremities: No calf tenderness / cord - Neuro Neuro: Alert and oriented X 3 - Psych Psych: Normal mood, Normal affect Results - Vitals Vitals: Vital Signs - 24 hr 07/06/22 07/06/22 07/06/22 16:50 17:36 19:13 Temperature 37.4 C Heart Rate 98 95 91 Respiratory 26 H 24 17 Rate Blood Pressure 140/70 H 102/64 139/80 H O2 Saturation 97 97 100 07/06/22 19:49 Temperature Heart Rate 91 Respiratory 20 Rate Blood Pressure 125/86 H O2 Saturation 98 Oxygen O2 Source Room air - Labs Labs: Laboratory Tests 07/06/22 07/06/22 07/06/22 17:38 17:38 17:55 WBC 10.8 RBC 3.98 L Hgb 12.0 L Hct 37.4 L MCV 94.0 MCH 30.2 MCHC 32.1 RDW 13.4 Plt Count 158 MPV 10.5 Neut # (Auto) 8.9 H Lymph # (Auto) 0.7 L Corson # (Auto) 1.1 H Eos # (Auto) 0.0 Baso # (Auto) 0.0 Absolute Nucleated RBC 0.00 Nucleated RBC % 0.0 Sodium 135 Potassium 4.2 Chloride 101 Carbon Dioxide 24 Anion Gap 10.0 BUN 41 H Creatinine 1.9 H Estimated GFR (MDRD) 34 L Glucose 344 H Calcium 8.9 Total Bilirubin 1.0 AST 17 ALT 15 Alkaline Phosphatase 87 Total Protein 7.1 Albumin 3.6 Globulin 3.5 Albumin/Globulin Ratio 1.0 Lipase 39 Urine Color YELLOW Urine Clarity CLEAR Urine pH 5.5 Ur Specific Dawn 1.025 Urine Protein 100 H Urine Glucose (UA) >=1000 H Urine Ketones NEGATIVE Urine Occult Blood TRACE-INTA Urine Nitrite NEGATIVE Urine Bilirubin NEGATIVE Urine Urobilinogen 0.2 (NORMAL) Ur Leukocyte Esterase NEGATIVE Urine RBC 0-5 Urine WBC 0-3 Ur Squamous Epith Cells NONE SEEN Urine Bacteria Rare Ur Microscopic Review INDICATED Urine Culture Comments NOT INDICATED - Rads (name of study) CT abd/pelvis Radiology: Final report received, EMP read contemporaneously, See rad report PD MEDICAL DECISION MAKING - ED course Complexity details: reviewed results, re-evaluated patient, considered yair rivera, d/w patient, d/w family ED course: 82-year-old male with acute urinary retention. A Palomo catheter was placed and the bladder was drained. We will leave the Palomo catheter in place. He does have a left-sided renal stone, but not an obstructing ureteral stone. Does have some bacteria present in a catheterized urine specimen, therefore we will treat him. We will see if this is potentially contributing to his pain as well. Patient is well-appearing, nontoxic. Afebrile. Patient does have a left lower lobe pulmonary nodule and will follow up with his doctor for this. Patient and family counseled regarding signs and symptoms for which I believe and urgent re- evaluation would be necessary. Patient with good understanding of and agreement to plan and is comfortable going home at this time This document was made in part using voice recognition software. While efforts are made to proofread this document, sound alike and grammatical errors may occur. IMPRESSION: 1. No acute process. 2. Left lower lobe pulmonary nodule. Initial further assessment with PET/CT examination is recommended. 3. Small hiatal hernia. 4. Appendix not seen. No evidence of appendicitis. 5. Nonobstructing left renal calculus. Departure - Departure Disposition: 01 Home, Self Care Clinical Impression: Urinary retention, Pulmonary nodule UTI (urinary tract infection) Qualifiers: Urinary tract infection type: acute cystitis Hematuria presence: without hematuria Qualified Code(s): N30.00 - Acute cystitis without hematuria Condition: Good Instructions: ED Catheter Care Paolmo, ED Retention Urinary Male, ED UTI Cystitis Male Follow-Up: Lefty Up MD [Primary Care Provider] - Within 1 week Prescriptions: Cefdinir 300 mg PO BID #20 cap Oxycodone HCl/Acetaminophen [Percocet 5-325 mg Tablet] 1 each PO Q6H PRN #12 tablet PRN Reason: pain Comments: Please leave the catheter in place until he sees his doctor. They can perform a voiding trial after the catheters been in for a few days. We will treat his urinary tract infection as well. Prescriptions were given to you for an antibiotic as well as pain medication. I am prescribing a short course of narcotic pain medication for you. These are potentially dangerous and addictive medications that should be used carefully. These medications may constipate you. Take an uaoz-[id number]-aruxepz stool softener (docusate) twice daily with plenty of water while taking these medications. If you go 24 hours without a bowel movement, take [id number] miralax, per package instructions. Do not drink or drive while taking these medications. If you received narcotic or sedating medications while in the emergency department, do not drive for 24 hours. Store this medication in a safe, secure place and out of reach of children. It is a violation of federal law to give or sell this medication to another person or to use in a manner other than prescribed. The ED will not refill narcotic prescriptions, including prescriptions lost or stolen. To dispose of unwanted medications: 1. [facility] at [address] in [place] has a medication drop box. They accept prescription medications (in pill form) Thursday through Thursday 9:00 a.m. to 5:00 p.m. 2. [facility] accepts prescription medications (in pill form only) for disposal year round. Call for more inform ation. 3. Contact the [facility] for the next [facility] sponsored prescription drug collection event. , [phone], or [phone]; Discharge Date/Time: 07/06/22 19:50
[2022-07-06 17:43] LABS: BASOPHILS % (AUTO) 0.1 %; HCT - HEMATOCRIT 37.4 % (42.0-52.0); LYMPHOCYTES # (AUTO) 0.7 10^3/uL (1.5-3.5); LYMPHOCYTES % (AUTO) 6.9 %; MEAN CORPUSCULAR HEMOGLOBIN 30.2 pg (27.0-31.0); MEAN CORPUSCULAR HGB CONC 32.1 g/dL (32.0-36.0); MEAN PLATELET VOLUME 10.5 fL (7.4-11.4); MONOCYTES # (AUTO) 1.1 10^3/uL (0.0-1.0); MONOCYTES % (AUTO) 9.9 %; NEUTROPHILS # (AUTO) 8.9 10^3/uL (1.5-6.6); NEUTROPHILS % (AUTO) 82.5 %; PLT - PLATELET COUNT 158 10^3/uL (130-450); RED BLOOD COUNT 3.98 10^6/uL (4.70-6.10); RED CELL DISTRIBUTION WIDTH 13.4 % (12.0-15.0); WHITE BLOOD COUNT 10.8 x10^3/uL (4.8-10.8)
[2022-07-06 17:57] LABS: ALBUMIN 3.6 g/dL (3.2-5.5); CALCIUM 8.9 mg/dL (8.5-10.3); CREATININE 1.9 mg/dL (0.6-1.2); POTASSIUM 4.2 mmol/L (3.5-5.0); TOTAL PROTEIN 7.1 g/dL (6.7-8.2)
[2022-07-06 18:08] LABS: BILIRUBIN,URINE NEGATIVE (NEGATIVE); GLUCOSE, URINE (UA) >=1000 mg/dL (NEGATIVE); KETONES,URINE (UA) NEGATIVE (NEGATIVE); LEUKOCYTE ESTERASE, URINE NEGATIVE (NEGATIVE); NITRITE,URINE NEGATIVE (NEGATIVE); OCCULT BLOOD,URINE TRACE-INTA (NEGATIVE); PH,URINE 5.5 PH (5.0-7.5); PROTEIN,URINE 100 mg/dL (NEGATIVE); UROBILINOGEN,URINE 0.2 (NORMAL) E.U./dL (NORMAL)
[2022-07-06 18:09] LABS: CLARITY,URINE CLEAR (CLEAR)
[2022-07-06] MEDS ORDERED: MORPHINE 2 MG/ML CARPUJECT IVP STA ×2 (18:16→18:59)
[2022-07-06 18:21] LABS: BACTERIA,URINE Rare /HPF (None Seen); RBC,URINE 0-5 /HPF (0-5); SQUAMOUS EPITHELIAL CELL,UR NONE SEEN (<= Few); WBC,URINE 0-3 /HPF (0-3)
--- NOTE | 2022-07-06 18:47 | CT Report ---
PROCEDURE: Abdomen/Pelvis WO INDICATIONS: flank plan TECHNIQUE: Noncontrast 5 mm thick sections acquired from the diaphragms to the symphysis. 5 mm coronal and sagi ttal reformats were then performed. For radiation dose reduction, the following was used: automated exposure control, adjustment of mA and/or kV according to patient size. COMPARISON: None. FINDINGS: Image quality: Excellent. ABDOMEN: Lung bases: Subpleural nodular density within the left lower lobe posteriorly measuring 14 mm diamet er. Mild dependent bibasilar scarring. Lung bases are otherwise clear. Heart size is normal. Modera te calcification of the coronary vasculature. Solid organs: Liver and spleen are normal in size. Gallbladder is within normal limits Pancreas is normal in contours. No adrenal nodules. Kidneys are normal in size, without hydronephrosis. Nonobs tructing 7 mm calculus within the left interpolar kidney. No right nephrolithiasis. No hydronephrosis . No ureteral dilatation or calcification. Peritoneum and bowel: Small hiatal hernia. Unenhanced bowel loops demonstrate normal wall thickness and caliber. No free fluid or air. Appendix not seen. No evidence of appendicitis. Nodes and vessels: No retroperitoneal or mesenteric adenopathy by size criteria. Aorta and inferior vena cava are normal in caliber. Miscellaneous: Small fat-containing umbilical hernia. PELVIS: Genitourinary: Urinary bladder is decompressed. Miscellaneous: No inguinal hernias or adenopathy. Bones: Right hip arthroplasty. No suspicious bony lesions. No vertebral body compression fractures. IMPRESSION: 1. No acute process. 2. Left lower lobe pulmonary nodule. Initial further assessment with PET/CT examination is recommende d. 3. Small hiatal hernia. 4. Appendix not seen. No evidence of appendicitis. 5. Nonobstructing left renal calculus. Reviewed by: Abdi Roman MD on 07/06/2022 6:46 PM PDT Approved by: Abdi Roman MD on 07/06/2022 6:46 PM PDT Station ID: [id number]
[2022-07-06] MEDS ORDERED: oxyCODONE/ACET 5/325 Prepack 4 PO STA (19:15)
[2022-07-06] MEDS ORDERED: cefTRIAXone 1 GM VIAL IVP STA (19:15)
[2022-07-06] MEDS ORDERED: oxyCODONE 5 MG TABLET PO STA (19:15)
[2022-07-06 19:50] VITALS: BP 125/86
== END 2022-07-06 19:50 | disposition home or self-care (01) ==
LOC: EDUNIT# → ED 16:46
DX: R33.9 Retention of urine, unspecified (principal); N30.00 Acute cystitis without hematuria; R91.1 Solitary pulmonary nodule; Z87.891 Personal history of nicotine dependence
CPT/HCPCS: 36415; 51702; 74176; 80053; 81001; 83690; 85025; 96374; 96375; 96376; 99284; A9270; 81003; 87086

== ENCOUNTER 2022-07-08 10:10 | Outpatient (CLI) | payer MEDICARE | END 2022-07-08 10:11 | disposition EMS.NT | LOC: EMS 10:10 | DX: E11.65 Type 2 diabetes mellitus with hyperglycemia (principal) ==

== ENCOUNTER 2022-07-11 09:51 | Outpatient (CLI) | payer MEDICARE | END 2022-07-11 09:52 | disposition critical access hospital (66) | LOC: EMS 09:51 | DX: R53.1 Weakness (principal); M79.605 Pain in left leg; M79.604 Pain in right leg; W18.30XA Fall on same level, unspecified, initial encounter; Y92.002 Bathroom of unspecified non-institutional (private) residence as the place of occurrence of the external cause | CPT/HCPCS: A0425; A0429 ==

== ENCOUNTER 2022-07-11 10:11 | Emergency (ER) | payer MEDICARE ==
[2022-07-11] MEDS ORDERED: SODIUM CHLORIDE 0.9% 1,000 ML IV STA (10:22)
--- NOTE | 2022-07-11 10:26 | ED Physician Documentation ---
History of Present Illness - Stated complaint Stated Complaint: GLF/WEAKNESS - Chief complaint Chief Complaint: Neuro - History obtained from History obtained from: Patient, EMS - Additonal information Additional information: The patient is brought to the emergency department by EMS for chief complaint of weakness and fall. The patient states he had just gotten up from sitting down and was starting to ambulate when his legs just crumpled beneath him. Patient states he sank to the floor and did not hurt himself in any way. He states his was still asleep so he laid on the floor for couple of hours until she could get up and help him. The patient states that he just feels that he is weak in his legs. He denies any fevers or chills. No urinary symptoms. He was just seen here about 5 days ago for urinary retention and urinary tract infection. He has a history of diabetes but does not feel that his sugar was low when EMS got a normal sugar. No chest pain or shortness of breath. He states he otherwise feels pretty well. Patient lives at home with his . Review of Systems Ten Systems: 10 systems reviewed and negative Constitutional: reports: Reviewed and negative Eyes: reports: Reviewed and negative Ears: reports: Reviewed and negative Nose: reports: Reviewed and negative Throat: reports: Reviewed and negative Cardiac: reports: Reviewed and negative Respiratory: reports: Reviewed and negative GI: reports: Reviewed and negative : reports: Reviewed and negative Skin: reports: Reviewed and negative Musculoskeletal: reports: Reviewed and negative Neurologic: reports: Generalized weakness Psychiatric: reports: Reviewed and negative Endocrine: reports: Reviewed and negative Immunocompromised: reports: Reviewed and negative PD PAST MEDICAL HISTORY - Past Medical History Cardiovascular: Hypertension, High cholesterol, Coronary artery disease Respiratory: Sleep apnea Neuro: None Endocrine/Autoimmune: Type 2 diabetes GI: GERD, Ulcers, Colon polyps : Benign prostate hypertrophy, Retention, Renal insuffiency HEENT: Chronic vision loss, Chronic sinusitis, Other Psych: None Musculoskeletal: Osteoarthritis Derm: Other - Past Surgical History Past Surgical History: Yes General: Appendectomy, Colonoscopy Ortho: Hip replacement, Amputation Cardiovascular: Cardiac catheterization - Present Medications Home Medications: Ambulatory Orders Medication Instructions Recorded Confirmed Atorvastatin Calcium 40 mg PO DAILY 10/14/17 06/08/18 Cholecalciferol (Vitamin D3) 2,000 unit PO DAILY 10/14/17 06/08/18 [Vitamin D3] Finasteride 5 mg PO DAILY 10/14/17 06/08/18 Insulin 70/30 Human [NovoLIN] 44 unit SUBQ 0730,1630 10/14/17 06/08/18 Metoprolol Tartrate 25 mg PO BID 10/14/17 06/08/18 Omeprazole 20 mg PO DAILY 10/14/17 06/08/18 Tamsulosin HCl [Flomax] 0.4 mg PO DAILY 10/14/17 06/08/18 Senna [Senokot] 8.6 mg PO BID PRN 11/03/17 06/08/18 Gabapentin 300 mg PO DAILY 03/09/18 06/08/18 Aspirin 81 mg PO DAILY 05/31/18 06/08/18 Furosemide [Lasix] 20 mg PO DAILY 05/31/18 06/08/18 Cefdinir 300 mg PO BID #20 cap 07/06/22 Oxycodone HCl/Acetaminophen 1 each PO Q6H PRN #12 tablet 07/06/22 [Percocet 5-325 mg Tablet] - Allergies Allergies/Adverse Reactions: Allergies Allergy/AdvReac Type Severity Reaction Status Date / Time No Known Drug Allergies Allergy Verified 11/28/21 15:33 - Social History Does the pt smoke?: No Smoking Status: Never smoker Does the pt drink ETOH?: Yes Does the pt have substance abuse?: No - Immunizations Immunizations are current?: Yes - POLST Patient has POLST: No PD ED PE NORMAL - Vitals Vital signs reviewed: Yes - General General: Alert and oriented X 3, No acute distress, Well developed/nourished - HEENT HEENT: Atraumatic, PERRL, EOMI, Moist mucous membranes - Neck Neck: Supple, no meningeal sign - Cardiac Cardiac: RRR, No murmur, Strong equal pulses - Respiratory Respiratory: No respiratory distress, Clear bilaterally - Abdomen Abdomen: Soft, Non tender, Non distended - Derm Derm: Normal color, Warm and dry, No rash - Extremities Extremities: No deformity, Other (1+ pitting edema bilateral lower extremities) - Neuro Neuro: Alert and oriented X 3, community support worker 2-12 intact, Normal speech, Other (Patient moves both lower extremities but struggles to lift legs against gravity.) - Psych Psych: Normal mood, Normal affect Results - Vitals Vitals: Vital Signs - 24 hr 07/11/22 07/11/22 10:16 14:08 Temperature 37.2 C 37.0 C Heart Rate 98 88 Respiratory 17 16 Rate Blood Pressure 150/92 H 140/88 H O2 Saturation 98 98 Oxygen O2 Source Room air - Labs Labs: Laboratory Tests 07/11/22 07/11/22 07/11/22 11:01 11:01 11:01 WBC 11.9 H RBC 4.09 L Hgb 12.3 L Hct 37.1 L MCV 90.7 MCH 30.1 MCHC 33.2 RDW 13.0 Plt Count 191 MPV 10.9 Neut # (Auto) 10.2 H Lymph # (Auto) 0.8 L [place] # (Auto) 0.8 Eos # (Auto) 0.0 Baso # (Auto) 0.0 Absolute Nucleated RBC 0.00 Nucleated RBC % 0.0 Sodium 136 Potassium 4.0 Chloride 103 Carbon Dioxide 21 Anion Gap 12.0 BUN 55 H Creatinine 1.9 H Estimated GFR (MDRD) 34 L Glucose 111 H Calcium 9.2 Total Bilirubin 1.4 H AST 66 H ALT 40 Alkaline Phosphatase 73 B-Natriuretic Peptide 163 H Total Protein 7.4 Albumin 3.3 Globulin 4.1 Albumin/Globulin Ratio 0.8 L Lipase 22 PD MEDICAL DECISION MAKING - ED course Complexity details: reviewed results, re-evaluated patient, considered differential, d/w patient, d/w family ED course: The patient was worked up with labs and urinalysis. He was given IV fluids. Work-up was unremarkable and the patient was feeling better. I did have social work speak with the patient and his and they are actually both wanting the patient to go home but would like some resources. They have been given extensive resources to help set up home services and also, an appointment that the patient had scheduled in a couple weeks has been moved up to 4 days from now. The patient will see his primary doctor and the social group worker has already put in and request that the patient have a home PT evaluation. We discussed the usual indications for return. Departure - Departure Disposition: 01 Home, Self Care Clinical Impression: Weakness generalized Fall Qualifiers: Encounter type: initial encounter Qualified Code(s): W19.XXXA - Unspecified fall, initial encounter Condition: Stable Instructions: Falls Risks Prevent, ED Weakness UKO Comments: Your labs look fairly good. It is not clear why you continue to be weak, though no emergent condition has been found as a cause for this. The social workers provided you with resources today to help make things more manageable at home. Please follow-up on these as directed. Your appointment Dr. Ulrich has been moved up to this coming Thursday to help with some of these issues. Please do not miss your appointment. Discharge Date/Time: 07/11/22 13:45
[2022-07-11 11:07] LABS: BASOPHILS % (AUTO) 0.2 %; EOSINOPHILS % (AUTO) 0.2 %; HCT - HEMATOCRIT 37.1 % (42.0-52.0); HGB - HEMOGLOBIN 12.3 g/dL (14.0-18.0); LYMPHOCYTES # (AUTO) 0.8 10^3/uL (1.5-3.5); LYMPHOCYTES % (AUTO) 6.5 %; MEAN CORPUSCULAR HEMOGLOBIN 30.1 pg (27.0-31.0); MEAN CORPUSCULAR HGB CONC 33.2 g/dL (32.0-36.0); MEAN CORPUSCULAR VOLUME 90.7 fL (80.0-94.0); MEAN PLATELET VOLUME 10.9 fL (7.4-11.4); MONOCYTES # (AUTO) 0.8 10^3/uL (0.0-1.0); MONOCYTES % (AUTO) 6.7 %; NEUTROPHILS # (AUTO) 10.2 10^3/uL (1.5-6.6); PLT - PLATELET COUNT 191 10^3/uL (130-450); RED BLOOD COUNT 4.09 10^6/uL (4.70-6.10); WHITE BLOOD COUNT 11.9 x10^3/uL (4.8-10.8)
[2022-07-11 11:20] LABS: ALBUMIN 3.3 g/dL (3.2-5.5); ALBUMIN/GLOBULIN RATIO 0.8 (1.0-2.2); BILIRUBIN,TOTAL 1.4 mg/dL (0.2-1.0); CALCIUM 9.2 mg/dL (8.5-10.3); CREATININE 1.9 mg/dL (0.6-1.2); TOTAL PROTEIN 7.4 g/dL (6.7-8.2)
[2022-07-11 14:10] VITALS: BP 140/88
== END 2022-07-11 13:45 | disposition home or self-care (01) ==
LOC: EDUNIT# → ED 10:11
DX: R53.1 Weakness (principal); W19.XXXA Unspecified fall, initial encounter; I10 Essential (primary) hypertension; E11.9 Type 2 diabetes mellitus without complications; Z79.4 Long term (current) use of insulin
CPT/HCPCS: 36415; 80053; 83690; 83880; 85025; 99282; 99283

== ENCOUNTER 2022-09-03 17:49 | Outpatient (CLI) | payer MEDICARE | END 2022-09-03 17:50 | disposition home or self-care (01) | LOC: EMS 17:49 | DX: E11.649 Type 2 diabetes mellitus with hypoglycemia without coma (principal) ==

== ENCOUNTER 2022-09-05 18:36 | Emergency (ER) | payer MEDICARE ==
[2022-09-05] MEDS ORDERED: DEXTROSE 10% 250 ML IV STA ×2 (18:37→18:38)
--- NOTE | 2022-09-05 18:46 | ED Physician Documentation ---
History of Present Illness - Stated complaint Stated Complaint: HYPOGLYCEMIA - Chief complaint Chief Complaint: General - History obtained from History obtained from: Patient, Family - History of Present Illness Timing: Today Pain level max: 0 Pain level now: 0 - Additonal information Additional information: Patient is an 82-year-old male brought in by family for low blood sugar today. He is a diabetic. He is on insulin. The family checked his blood sugar and noted to be low. The patient is currently combative. Review of Systems Unable to obtain: AMS, Confused PD PAST MEDICAL HISTORY - Past Medical History Cardiovascular: Hypertension, High cholesterol, Coronary artery disease Respiratory: Sleep apnea Neuro: None Endocrine/Autoimmune: Type 2 diabetes GI: GERD, Ulcers, Colon polyps : Benign prostate hypertrophy, Retention, Renal insuffiency HEENT: Chronic vision loss, Chronic sinusitis, Other Psych: None Musculoskeletal: Osteoarthritis Derm: Other - Past Surgical History Past Surgical History: Yes General: Appendectomy, Colonoscopy Ortho: Hip replacement, Amputation Cardiovascular: Cardiac catheterization - Present Medications Home Medications: Ambulatory Orders Medication Instructions Recorded Confirmed Atorvastatin Calcium 40 mg PO DAILY 10/14/17 06/08/18 Cholecalciferol (Vitamin D3) 2,000 unit PO DAILY 10/14/17 06/08/18 [Vitamin D3] Finasteride 5 mg PO DAILY 10/14/17 06/08/18 Insulin 70/30 Human [NovoLIN] 44 unit SUBQ 0730,1630 10/14/17 06/08/18 Metoprolol Tartrate 25 mg PO BID 10/14/17 06/08/18 Omeprazole 20 mg PO DAILY 10/14/17 06/08/18 Tamsulosin HCl [Flomax] 0.4 mg PO DAILY 10/14/17 06/08/18 Senna [Senokot] 8.6 mg PO BID PRN 11/03/17 06/08/18 Gabapentin 300 mg PO DAILY 03/09/18 06/08/18 Aspirin 81 mg PO DAILY 05/31/18 06/08/18 Furosemide [Lasix] 20 mg PO DAILY 05/31/18 06/08/18 Cefdinir 300 mg PO BID #20 cap 07/06/22 Oxycodone HCl/Acetaminophen 1 each PO Q6H PRN #12 tablet 07/06/22 [Percocet 5-325 mg Tablet] - Allergies Allergies/Adverse Reactions: Allergies Allergy/AdvReac Type Severity Reaction Status Date / Time No Known Drug Allergies Allergy Verified 11/28/21 15:33 - Social History Does the pt smoke?: No Smoking Status: Never smoker Does the pt drink ETOH?: Yes Does the pt have substance abuse?: No - Immunizations Immunizations are current?: Yes - POLST Patient has POLST: No PD ED PE NORMAL - Vitals Vital signs reviewed: Yes - General General: No acute distress, Other (combative, uncooperative.) - HEENT HEENT: Atraumatic, PERRL, Moist mucous membranes - Neck Neck: Supple, no meningeal sign - Cardiac Cardiac: RRR, Strong equal pulses - Respiratory Respiratory: No respiratory distress, Clear bilaterally - Abdomen Abdomen: Soft, Non tender, Non distended - Derm Derm: Warm and dry, No rash - Extremities Extremities: No edema - Neuro Neuro: Other (cobative) - Psych Psych: Normal mood, Normal affect Results - Vitals Vitals: Vital Signs - 24 hr 09/05/22 09/05/22 18:56 19:31 Temperature 36.1 C L Heart Rate 67 84 Respiratory 14 19 Rate Blood Pressure 139/68 H 140/65 H O2 Saturation 99 98 Oxygen O2 Source Room air - Labs Labs: Laboratory Tests 09/05/22 09/05/22 09/05/22 18:50 18:50 19:01 WBC 8.8 RBC 3.64 L Hgb 10.3 L Hct 33.9 L MCV 93.1 MCH 28.3 MCHC 30.4 L RDW 14.3 Plt Count 260 MPV 9.5 Neut # (Auto) 6.0 Lymph # (Auto) 1.7 [place] # (Auto) 0.7 Eos # (Auto) 0.3 Baso # (Auto) 0.1 Absolute Nucleated RBC 0.00 Nucleated RBC % 0.0 Sodium 140 Potassium 3.8 Chloride 105 Carbon Dioxide 26 Anion Gap 9.0 BUN 37 H Creatinine 1.5 H Estimated GFR (MDRD) 45 L Glucose 108 H POC Whole Bld Glucose 108 H Calcium 8.6 09/05/22 19:34 WBC RBC Hgb Hct MCV MCH MCHC RDW Plt Count MPV Neut # (Auto) Lymph # (Auto) [place] # (Auto) Eos # (Auto) Baso # (Auto) Absolute Nucleated RBC Nucleated RBC % Sodium Potassium Chloride Carbon Dioxide Anion Gap BUN Creatinine Estimated GFR (MDRD) Glucose POC Whole Bld Glucose 130 H Calcium PD MEDICAL DECISION MAKING - ED course Complexity details: reviewed results, re-evaluated patient, considered differential, d/w patient, d/w family ED course: 82-year-old male, history of diabetes, on insulin. His initial blood sugar was 28. An IV line was started. 250 mL of D10 was bolused. Blood sugar improved. Mental status returned to baseline. Patient is asymptomatic. Eating and drinking without difficulty. Blood sugar remained elevated in normal range during the emergency department stay. His family is comfortable taking him home at this time and will monitor his blood sugar there. They will return if he worsens. Patient and family counseled regarding signs and symptoms for which I believe and urgent re-evaluation would be necessary. Patient with good understanding of and agreement to plan and is comfortable going home at this time This document was made in part using voice recognition software. While efforts are made to proofread this document, sound alike and grammatical errors may occur. We will have him decrease his insulin to half his normal dose for the next several days. Departure - Departure Disposition: 01 Home, Self Care Clinical Impression: Hypoglycemia Condition: Good Instructions: ED Diabetes Hypoglycemia Insulin React Follow-Up: Dexter Ulrich MD [Primary Care Provider] - Within 1 week Comments: Given your low blood sugar. Please decrease your insulin to half your normal dose until you see your doctor. Please follow-up with your doctor for further care. You should check your blood sugar every hour tonight until bed. Make sure someone is with you today at home. Discharge Date/Time: 09/05/22 19:46
[2022-09-05 18:55] LABS: BASOPHILS # (AUTO) 0.1 10^3/uL (0.0-0.1); BASOPHILS % (AUTO) 0.6 %; EOSINOPHILS # (AUTO) 0.3 10^3/uL (0.0-0.7); EOSINOPHILS % (AUTO) 3.4 %; HCT - HEMATOCRIT 33.9 % (42.0-52.0); HGB - HEMOGLOBIN 10.3 g/dL (14.0-18.0); LYMPHOCYTES # (AUTO) 1.7 10^3/uL (1.5-3.5); LYMPHOCYTES % (AUTO) 18.8 %; MEAN CORPUSCULAR HEMOGLOBIN 28.3 pg (27.0-31.0); MEAN CORPUSCULAR HGB CONC 30.4 g/dL (32.0-36.0); MEAN CORPUSCULAR VOLUME 93.1 fL (80.0-94.0); MEAN PLATELET VOLUME 9.5 fL (7.4-11.4); MONOCYTES # (AUTO) 0.7 10^3/uL (0.0-1.0); MONOCYTES % (AUTO) 8.4 %; NEUTROPHILS % (AUTO) 68.6 %; PLT - PLATELET COUNT 260 10^3/uL (130-450); RED BLOOD COUNT 3.64 10^6/uL (4.70-6.10); RED CELL DISTRIBUTION WIDTH 14.3 % (12.0-15.0); WHITE BLOOD COUNT 8.8 x10^3/uL (4.8-10.8)
[2022-09-05 19:04] LABS: CALCIUM 8.6 mg/dL (8.5-10.3); CREATININE 1.5 mg/dL (0.6-1.2); POTASSIUM 3.8 mmol/L (3.5-5.0)
[2022-09-05 19:44] VITALS: BP 140/65
== END 2022-09-05 19:46 | disposition home or self-care (01) ==
LOC: ED 18:36
DX: E11.649 Type 2 diabetes mellitus with hypoglycemia without coma (principal); Z79.4 Long term (current) use of insulin
CPT/HCPCS: 36415; 80048; 85025; 96365; 99283; 99284; J3490